=== PATIENT | female | born 1970 | race Caucasian/White ===

== ENCOUNTER → 2019-02-21 08:40 | Outpatient (CLI) | payer OTHER, SELFPAY ==
[2019-02-21 09:36] LABS: Add Manual Diff / Slide Review NO; Basophils Absolute Auto 0 /uL (0-100); Basophils Percent Auto 0.6 % (0-2); Eosinophils Absolute Auto 100 /uL (0-450); Eosinophils Percent Auto 2.3 % (2-4); Hematocrit 37.8 % (36-46); Hemoglobin 12.7 g/dL (12.0-16.0); Lymphocytes Absolute Auto 1200 /uL (1100-4500); Lymphocytes Percent Auto 29.7 % (25-40); Mean Corpuscular HGB Conc 33.5 % (30-36); Mean Corpuscular Hemoglobin 29.9 PG (26-34); Mean Corpuscular Volume 89.1 fL (80-100); Monocytes Absolute Auto 400 /uL (0-900); Monocytes Percent Auto 9.8 % (3-14); Neutrophils Absolute Auto 2400 /uL (1500-7000); Neutrophils Percent Auto 57.6 % (50-75); Platelet Count 263 X10^3/uL (150-400); Red Blood Cell Count 4.25 X10^6/uL (4.0-5.2); Red Cell Distribution Width 13.4 % (11.6-14.8); White Blood Cell Count 4.2 X10^3/uL (4.5-11.0)
[2019-02-21 09:55] LABS: Alanine Aminotransferase 21 IU/L (9-52); Albumin 4.4 g/dL (3.5-5.0); Albumin Globulin Ratio 1.5 (1.0-2.8); Alkaline Phosphatase 56 U/L (38-126); Aspartate Aminotransferase 23 IU/L (14-36); BUN Creatinine Ratio 22.5 (6-22); Bilirubin Total 0.6 mg/dL (0.2-1.3); Blood Urea Nitrogen 18 mg/dL (7-17); Calcium 9.4 mg/dL (8.4-10.2); Carbon Dioxide 29 mmol/L (22-32); Chloride 101 mmol/L (98-107); Cholesterol 205 mg/dL (140-199); Estimated Glomerular Filt Rate > 60.0 mL/min (>60); Glucose 92 mg/dL (70-100); HDL Cholesterol 70 mg/dL (40-60); HEMOLYSIS < 15 (0-50); LDL Cholesterol Calculated 124 mg/dL (<100); Potassium 4.3 mmol/L (3.4-5.1); Sodium 138 mmol/L (137-145); Total Protein 7.4 g/dL (6.3-8.2); Triglycerides 57 mg/dL (35-150)
[2019-02-21 10:24] LABS: TSH w/ Reflex to FT4 1.12 uIU/mL (0.47-4.68)
== END ==
PROVIDERS: Family Provider Family Medicine; PCP Family Medicine; Visit Provider Family Medicine
DX: Z00.00 Encounter for general adult medical examination without abnormal findings (principal); Z13.6 Encounter for screening for cardiovascular disorders
CPT/HCPCS: 36415; 80053; 80061; 84443; 85025

== ENCOUNTER → 2020-04-01 08:49 | Outpatient (CLI) | payer OTHER, SELFPAY ==
[2020-04-01 11:58] LABS: Add Manual Diff / Slide Review NO; Basophils Absolute Auto 100 /uL (0-100); Eosinophils Absolute Auto 0 /uL (0-450); Eosinophils Percent Auto 0.8 % (2-4); Hematocrit 39.3 % (36-46); Hemoglobin 13.1 g/dL (12.0-16.0); Lymphocytes Absolute Auto 1000 /uL (1100-4500); Lymphocytes Percent Auto 21.7 % (25-40); Mean Corpuscular HGB Conc 33.4 % (30-36); Mean Corpuscular Hemoglobin 29.9 PG (26-34); Mean Corpuscular Volume 89.6 fL (80-100); Monocytes Absolute Auto 600 /uL (0-900); Monocytes Percent Auto 12.8 % (3-14); Neutrophils Absolute Auto 3000 /uL (1500-7000); Neutrophils Percent Auto 62.7 % (50-75); Platelet Count 290 X10^3/uL (150-400); Red Blood Cell Count 4.39 X10^6/uL (4.0-5.2); Red Cell Distribution Width 13.2 % (11.6-14.8); White Blood Cell Count 4.8 X10^3/uL (4.5-11.0)
[2020-04-01 12:03] LABS: Alanine Aminotransferase 18 IU/L (<35); Albumin 4.5 g/dL (3.5-5.0); Albumin Globulin Ratio 1.7 (1.0-2.8); Alkaline Phosphatase 68 U/L (38-126); Amylase 52 U/L (30-110); Aspartate Aminotransferase 26 IU/L (14-36); BUN Creatinine Ratio 18.9 (6-22); Bilirubin Total 0.4 mg/dL (0.2-1.3); Blood Urea Nitrogen 14 mg/dL (7-17); Calcium 9.5 mg/dL (8.4-10.2); Carbon Dioxide 27 mmol/L (22-32); Chloride 102 mmol/L (98-107); Estimated Glomerular Filt Rate > 60.0 mL/min (>60); Globulin 2.7 g/dL (1.7-4.1); Glucose 78 mg/dL (70-100); HEMOLYSIS < 15 (0-50); Lipase 160 U/L (23-300); Potassium 4.7 mmol/L (3.4-5.1); Sodium 138 mmol/L (137-145); Total Protein 7.2 g/dL (6.3-8.2)
[2020-04-01 12:34] LABS: TSH w/ Reflex to FT4 0.46 uIU/mL (0.47-4.68)
[2020-04-01 13:24] LABS: Campylobacter Not Detected (Not Detect); Clostridium difficile toxin AB Not Detected (Not Detect); Enteroaggregative E.coli Not Detected (Not Detect); Enteropathogenic E.coli Not Detected (Not Detect); Plesiomonsa shigelloides Not Detected (Not Detect); Salmonella Not Detected (Not Detect); Vibrio Not Detected (Not Detect); Vibrio cholerae Not Detected (Not Detect); Yersinia enterocolitica Not Detected (Not Detect)
[2020-04-01 13:25] LABS: Adenovirus F 40/41 Not Detected (Not Detect); Astrovirus Not Detected (Not Detect); Cyclospora cayetanensis Not Detected (Not Detect); Entamoeba histolytica Not Detected (Not Detect); Enterotoxigenic E.coli It/st Not Detected (Not Detect); Giardia lamblia Not Detected (Not Detect); Norovirus GI/GII Not Detected (Not Detect); Rotavirus A Not Detected (Not Detect); Sapovirus Not Detected (Not Detect); Shiga-like toxin-prod E.coli Not Detected (Not Detect); Shigella/Enteroinvasive E.coli Not Detected (Not Detect)
[2020-04-01 13:27] LABS: Cryptosporidium Detected (Not Detect)
[2020-04-01 13:48] LABS: Free T4, Direct Thyroxine 1.31 ng/dL (0.78-2.19)
[2020-04-02 07:04] LABS: HBsAg Screen Negative (Negative); Hepatitis A Antibody IgM Negative (Negative); Hepatitis B Core Antibody IgM Negative (Negative); Hepatitis C Antibody <0.1 s/co ratio (0.0-0.9)
== END ==
PROVIDERS: Family Provider Family Medicine; PCP Family Medicine; Referring Provider Physician Assistant; Visit Provider Physician Assistant
DX: R19.7 Diarrhea, unspecified (principal)
CPT/HCPCS: 36415; 80053; 80074; 82150; 83690; 84439; 84443; 85025; 87507

== ENCOUNTER → 2020-12-04 10:17 | Outpatient (CLI) | payer OTHER, SELFPAY ==
[2020-12-04 11:40] LABS: Iron 76 ug/dL (37-170)
[2020-12-04 12:43] LABS: Folate > 20.0 ng/mL (2.76-20.0); Vitamin B12 850 pg/mL (239-931)
== END ==
PROVIDERS: Family Provider Family Medicine; PCP Family Medicine; Referring Provider Dentist; Visit Provider Dentist
DX: M26.69 Other specified disorders of temporomandibular joint (principal); K14.6 Glossodynia; K12.1 Other forms of stomatitis
CPT/HCPCS: 36415; 82607; 82746; 83540; 84443

== ENCOUNTER 2021-02-15 07:58 | Emergency (ER) | payer OTHER, SELFPAY ==
[2021-02-15 08:04] VITALS: BP 148/78; PULSE 86; RESP 15; TEMP 36.8; O2SAT 100; BMI 24.9
--- NOTE | 2021-02-15 08:12 | DI.CT.S_ITS ---
PROCEDURE: CT HEAD/BRAIN WO CON INDICATIONS: right facial droop TECHNIQUE: Noncontrast 4.5 mm thick angled axial sections acquired from the foramen magnum to the vertex, with coronal and sagittal reformats. For radiation dose reduction, the following was used: automated exposure control, adjustment of mA and/or kV according to patient size. COMPARISON: None. FINDINGS: Image quality: CSF spaces: Basal cisterns are patent. No extra-axial fluid collections. Ventricles are normal in size and shape. Brain: No midline shift. No intracranial masses or hemorrhage. Navarrete-white matter interface is normal. Skull and face: Calvarium and visualized facial bones are intact, without suspicious lesions. Sinuses: Visualized sinuses and mastoids are clear. IMPRESSION: No acute intracranial finding. Dictated by: Jak Abrams M.D. on 02/15/2021 at 8:38 Approved by: Jak Abrams M.D. on 02/15/2021 at 8:38
--- NOTE | 2021-02-15 08:14 | ED.NEUROSD ---
HPI - Neuro Symptoms/Deficit General Chief Complaint: Neuro Symptoms/Deficit Stated Complaint: face is sagging and cant smile Time Seen by Provider: 02/15/21 08:00 Source: patient Mode of arrival: Ambulatory Limitations: no limitations History of Present Illness HPI Narrative: Patient is a 51-year-old female presents with right-sided facial droop. She was having issues with her right eye yesterday states she is having trouble closing and was bothering her this morning she woke up with right facial droop. She has no numbness tingling or weakness. No prior history of stroke or TIA. She states that she has had tongue numbness ongoing for past 6-8 months started to involve. Onset (ago): day(s) Location: right face Related Data Home Medications Medication Instructions Recorded Confirmed levonorgestrel 20 mcg/24 hours (6 INTRAUTERINE 08/22/11/18/20 yrs) 52 mg intrauterine device cyclobenzaprine 10 mg tablet 10 mg PO BEDTIME PRN 01/27/21 01/27/21 Previous Rx's Medication Instructions Recorded duloxetine 20 mg capsule,delayed 20 mg PO DAILY #90 cap 11/18/20 release zolpidem 10 mg tablet 10 mg PO HSP PRN #15 tab 11/18/20 artifi.tears(hypromellose)(PF) 2 drp EYE-RIGHT Q4HRWA PRN #10 ml 02/15/21 artificial tears ointment 0.25 inch EYE-RIGHT BEDTIME #3.5 g 02/15/21 prednisone 60 mg PO DAILY #21 tab 02/15/21 valacyclovir 1,000 mg PO TID #21 tab 02/15/21 Allergies Allergy/AdvReac Type Severity Reaction Status Date / Time No Known Drug Allergies Allergy Verified 01/27/21 16:33 Review of Systems Review of Systems Narrative: GENERAL: Denies chills, fatigue, malaise, fever, sweats, travel HEENT: Denies sinus pain, ear pain, sore throat, difficulty swallowing, neck pain RESPIRATORY: Denies dyspnea, cough, wheezing, hemoptysis, sputum. CARDIOVASCULAR: Denies chest pain, palpitations, orthopnea, edema GASTROINTESTINAL: Denies nausea, vomiting, abdominal pain, diarrhea, constipation, melena. : Denies dysuria, frequency, incontinence, hematuria, urinary retention, flank pain. MUSCULOSKELETAL: Denies weakness, joint pain, or bony pain SKIN: No rash, no erythema, no pruritus NEUROLOGIC: See HPI PSYCHIATRIC: No concerning psychosocial issues. 12 point review of systems is negative except for those stated above and HPI Patient History Medical History Remove/insert IUD Surgical History History of bladder suspension procedure Status post breast reduction Family History Father Cancer of neck Social History marital status: Smoking Status: Former smoker alcohol intake: current (1-2 A DAY ) substance use type: does not use Smoking Status: Former smoker Exam Initial Vital Signs Initial Vital Signs: Vital Signs Temperature 98.2 F 02/15/21 08:04 Pulse Rate 86 02/15/21 08:04 Respiratory Rate 15 02/15/21 08:04 Blood Pressure 148/78 H 02/15/21 08:04 Pulse Oximetry 100 02/15/21 08:04 GENERAL: Well-appearing, well-nourished and in no acute distress. HEENT: Head atraumatic,EOMI, pupils reactive, Right-sided facial droop inability to wrinkle right forehead or completely close right eye. Of right facial droop noted at mouth as well. CARDIOVASCULAR: Regular rate and rhythm without murmurs, rubs or gallops. RESPIRATORY: Breath sounds equal bilaterally, no wheezes rales or rhonchi. ABDOMEN: Soft, nontender. Normoactive bowel sounds all 4 quadrants. No guarding or rebound. EXTREMITIES: Normal range of motion, no clubbing or edema. Neurovascularly intact NEUROLOGICAL: Alert and oriented x4.Normal gait and speech. Cranial nerves II through XII grossly intact. Good whvdfr-uf-kbbo, good ccyi-of-mbuk, strength equal bilaterally, no dysarthria or aphasia, sensation in tact to soft touch bilaterally, no visual changes, + right facial droop as described SKIN: Warm, dry, no laceration, no petechiae, no rashes or lesions. Scores GCS Waller coma scale eye opening: Spontaneous Yvette coma scale verbal response: Orientated Waller coma scale motor response: Obey commands Yvette coma scale total score: 15 NIH Stroke Scale Level of Conciousness: Alert, keenly responsive Ask month/age: Answers both questions correctly. Open/close eyes, close hand: Performs both tasks correctly Best gaze horizontal: Normal Visual rueda: No visual loss Facial palsy: Complete paralysis, absence of movement in the upper and lower face Left arm drift: No drift for full 10 sec Right arm drift: No drift for full 10 sec Left leg drift: No drift for full 5 sec Right leg drift: No drift for full 5 sec Limb ataxia: Absent Sensory on face/arms/legs: Normal, no sensory loss Best language: No aphasia, normal Dysarthria: Normal Extinction or inattention: No abnormality Total NIH Stroke scale score: 3 Course Orders Ordered: ED Orders 02/15/21 08:10 Complete Blood Count AUTO DIFF Stat Comprehensive Metabolic Panel Stat Test Serum,Qual Stat Troponin & CK Cardiac Panel Stat 02/15/21 08:12 CT head/brain wo con Stat EKG-12 Lead Stat 02/15/21 08:47 CT angio head and neck Stat Vital Signs Vital signs: Vital Signs - 8 hr 02/15/21 08:04 02/15/21 10:01 Temperature 98.2 F Pulse Rate 86 69 Respiratory Rate 15 18 Blood Pressure 148/78 H 113/71 Pulse Oximetry 100 100 MDM - Neuro Symptoms/Deficit Lab Data Attestation: I reviewed the patient's lab results. Result diagrams: 02/15/21 08:10 02/15/21 08:10 Labs: Lab Results 02/15/21 02/15/21 02/15/21 Range/Units 08:10 08:10 08:10 WBC 5.2 (4.5-11.0) X10^3/uL RBC 4.39 (4.0-5.2) X10^6/uL Hgb 13.1 (12.0-16.0) g/dL Hct 39.7 (36-46) % MCV 90.3 (80-100) fL MCH 29.8 (26-34) PG MCHC 33.0 (30-36) % RDW 13.3 (11.6-14.8) % Plt Count 242 (150-400) X10^3/uL Neut % (Auto) 41.9 L (50-75) % Lymph % (Auto) 46.1 H (25-40) % [place] % (Auto) 9.0 (3-14) % Eos % (Auto) 2.0 (2-4) % Baso % (Auto) 1.0 (0-2) % Neut # (Auto) 2200 (0670-0873) /uL Lymph # (Auto) 2400 (3576-1302) /uL Charlotte # (Auto) 500 (0-900) /uL Eos # (Auto) 100 (0-450) /uL Baso # (Auto) 0 (0-100) /uL Sodium 139 (137-145) mmol/L Potassium 3.8 (3.4-5.1) mmol/L Chloride 104 (98-107) mmol/L Carbon Dioxide 27 (22-32) mmol/L BUN 23 H (7-17) mg/dL Creatinine 0.74 (0.52-1.04) mg/dL Estimated GFR > 60.0 (>60) mL/min BUN/Creatinine Ratio 31.1 H (6-22) Glucose 105 H (70-100) mg/dL Calcium 9.2 (8.4-10.2) mg/dL Total Bilirubin 0.4 (0.2-1.3) mg/dL AST 27 (14-36) IU/L ALT 19 (<35) IU/L Alkaline Phosphatase 75 (38-126) U/L Total Creatine Kinase 77 (30-135) U/L CK-MB (CK-2) TNP CK-MB (CK-2) Rel Index TNP Troponin I < 0.012 (0.01-0.034) ng/mL Total Protein 7.4 (6.3-8.2) g/dL Albumin 4.6 (3.5-5.0) g/dL Globulin 2.8 (1.7-4.1) g/dL Albumin/Globulin Ratio 1.6 (1.0-2.8) Serum , Qual Negative (Negative) Imaging Data CT scan - head: Radiologist's Impression: PROCEDURE: CT HEAD/BRAIN WO CON INDICATIONS: right facial droop TECHNIQUE: Noncontrast 4.5 mm thick angled axial sections acquired from the foramen magnum to the vertex, with coronal and sagittal reformats. For radiation dose reduction, the following was used: automated exposure control, adjustment of mA and/or kV according to patient size. COMPARISON: None. FINDINGS: Image quality: CSF spaces: Basal cisterns are patent. No extra-axial fluid collections. Ventricles are normal in size and shape. Brain: No midline shift. No intracranial masses or hemorrhage. Navarrete-white matter interface is normal. Skull and face: Calvarium and visualized facial bones are intact, without suspicious lesions. Sinuses: Visualized sinuses and mastoids are clear. IMPRESSION: No acute intracranial finding. Dictated by: Jak Abrams M.D. on 02/15/2021 at 8:38 CTA - brain/neck: Radiologist's Impression: PROCEDURE: CT ANGIO HEAD AND NECK INDICATIONS: right facial droop TECHNIQUE: Noncontrast images were performed earlier in the day and not repeated. After the administration of intravenous contrast, 1 mm thick sections acquired from the aortic arch through the [place] of [place]. Post-contrast 4.5 mm thick sections then re-acquired from the foramen magnum to the vertex. 3-dimensional bhpcyms-ugfijntkv-dvubjmskng (MIP) and/or volume rendering reformats were acquired of the central intracranial vasculature and neck separately. COMPARISON: [facility], CT, CT HEAD/BRAIN WO CON, 02/15/2021, 8:18. FINDINGS: Image quality: There is streak artifact seen through the level of the shoulders. Motion artifact is seen near the level of the skull base. BRAIN: CSF spaces: Ventricles are normal in size and shape. Basal cisterns are patent. No extra-axial fluid collections. Brain: No midline shift. No intracranial bleeds or masses. Navarrete-white matter interface appears intact. Skull and face: Calvarium and facial bones appear intact, without suspicious lesions. Orbits appear normal. In this patient with a given history of right facial droop, scrutiny is given to the course of the right facial nerve, including within the parotid gland. No masses or other significant abnormality can be seen. Sinuses: Sinuses and mastoids are clear. HEAD CT ANGIOGRAPHY: Anterior circulation: Intracranial internal carotid arteries are normal in size and flow. The flow within the paired anterior cerebral arteries is normal and symmetric. The flow within the middle cerebral arteries is normal and symmetric. The anterior communicating artery is not well seen. No aneurysms are seen. Posterior circulation: Visualized portions of the vertebral arteries demonstrate normal caliber, and join to form a normal appearing basilar artery. Flow within the posterior cerebral arteries is normal and symmetric. No aneurysms are seen. NECK CT ANGIOGRAPHY: Carotid system: The great vessels demonstrate a conventional anatomy as they arise from the aortic arch. The origins of the common carotid arteries appear patent. The common carotid arteries demonstrate normal caliber and courses. The bifurcation regions are both widely patent. The internal carotid arteries demonstrate normal calibers and courses. Posterior circulation: The origins of the vertebral arteries both appear widely patent. The more superior extracranial portions of both vertebral arteries also demonstrate normal courses and calibers. They join to form a normal appearing basilar artery. Soft tissues: Visualized neck soft tissues demonstrate no suspicious abnormalities. Bones: No suspicious bony lesions. Visualized cervical spine appears normally aligned. IMPRESSION: No hemodynamically significant stenosis can be seen within the intracranial circulation or within the arteries of the neck. Any quantitative measurements of stenosis were performed using NASCET criteria. Dictated by: Anoop Saldana M.D. on 02/15/2021 at 8:34 ECG Data Attestation: I personally reviewed and interpreted this ECG as follows: Prior ECG tracings: not available for review Interpretation: Rhythm rate 90 p.r. 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 Head CT and CT angio are negative. She is able to close her eye partially, I discussed with her and the importance of keeping it moist. No other focal deficits. She is given prednisone and valacyclovir, artificial tears. I also discussed with her she may need outpatient MRI however not needed today. Discharge Plan Departure Patient Disposition: Home Clinical Impression: Willard's palsy Instructions: DI for [place] Palsy Activity Restrictions/Additional Instructions: *You have been diagnosed with Willard's palsy *What to do: This should resolve on its own however some people do have per minute deficits. I do recommend that he have an outpatient MRI. *Continue to take medications as directed--> SENT TO [facility] [place] Eye drops 4 times daily and up to how early if needed her facial tears are available over the counter. Use artificial tear ointment at night and carefully taped shut Prednisone 60 mg once a day for 1 week Valacyclovir 1000 and days *Follow up with your primary care provider in 2-3 days *Return to ER if you should have increasing facial droop, painful or dry eye, vision change or any new, worsening or concerning symptoms Prescriptions: New valacyclovir 1 gram tablet 1,000 mg PO TID Qty: 21 RF: 0 prednisone 20 mg tablet 60 mg PO DAILY Qty: 21 RF: 0 artificial tears ointment Ointment 0.25 inch EYE-RIGHT BEDTIME Qty: 3.5 RF: 0 artifi.tears(hypromellose)(PF) 0.3 % drops 2 drp EYE-RIGHT Q4HRWA PRN (Reason: dry eyes) Qty: 10 RF: 0 No Action Mirena 20 mcg/24 hours (5 yrs) 52 mg intrauterine device intrauterine RF: 0 duloxetine [Cymbalta] 20 mg capsule,delayed release(DR/EC) 20 mg PO DAILY Qty: 90 RF: 1 zolpidem [Ambien] 10 mg tablet 10 mg PO HSP PRN (Reason: insomnia) Qty: 15 RF: 0 cyclobenzaprine 10 mg tablet 10 mg PO BEDTIME PRNRF: 0 Referrals: Jak Nicholson MD [Primary Care Provider] -
[2021-02-15 08:21] LABS: Add Manual Diff / Slide Review NO; Basophils Absolute Auto 0 /uL (0-100); Eosinophils Absolute Auto 100 /uL (0-450); Hematocrit 39.7 % (36-46); Hemoglobin 13.1 g/dL (12.0-16.0); Lymphocytes Absolute Auto 2400 /uL (1100-4500); Lymphocytes Percent Auto 46.1 % (25-40); Mean Corpuscular Hemoglobin 29.8 PG (26-34); Mean Corpuscular Volume 90.3 fL (80-100); Monocytes Absolute Auto 500 /uL (0-900); Neutrophils Absolute Auto 2200 /uL (1500-7000); Neutrophils Percent Auto 41.9 % (50-75); Platelet Count 242 X10^3/uL (150-400); Red Blood Cell Count 4.39 X10^6/uL (4.0-5.2); Red Cell Distribution Width 13.3 % (11.6-14.8); White Blood Cell Count 5.2 X10^3/uL (4.5-11.0)
[2021-02-15 08:34] LABS: Alanine Aminotransferase 19 IU/L (<35); Albumin 4.6 g/dL (3.5-5.0); Albumin Globulin Ratio 1.6 (1.0-2.8); Alkaline Phosphatase 75 U/L (38-126); Aspartate Aminotransferase 27 IU/L (14-36); BUN Creatinine Ratio 31.1 (6-22); Bilirubin Total 0.4 mg/dL (0.2-1.3); Blood Urea Nitrogen 23 mg/dL (7-17); Calcium 9.2 mg/dL (8.4-10.2); Carbon Dioxide 27 mmol/L (22-32); Chloride 104 mmol/L (98-107); Creatine Kinase 77 U/L (30-135); Estimated Glomerular Filt Rate > 60.0 mL/min (>60); Globulin 2.8 g/dL (1.7-4.1); Glucose 105 mg/dL (70-100); HEMOLYSIS < 15 (0-50); Potassium 3.8 mmol/L (3.4-5.1); Sodium 139 mmol/L (137-145); Total Protein 7.4 g/dL (6.3-8.2)
[2021-02-15 08:46] LABS: Troponin I < 0.012 ng/mL (0.01-0.034)
--- NOTE | 2021-02-15 08:47 | DI.CT.S_ITS ---
PROCEDURE: CT ANGIO HEAD AND NECK INDICATIONS: right facial droop TECHNIQUE: Noncontrast images were performed earlier in the day and not repeated. After the administration of intravenous contrast, 1 mm thick sections acquired from the aortic arch through the [place]. Post-contrast 4.5 mm thick sections then re-acquired from the foramen magnum to the vertex. 3-dimensional ixxznlc-quabdokvu-cmpgmrutkh (MIP) and/or volume rendering reformats were acquired of the central intracranial vasculature and neck separately. COMPARISON: [facility], CT, CT HEAD/BRAIN WO CON, 02/15/2021, 8:18. FINDINGS: Image quality: There is streak artifact seen through the level of the shoulders. Motion artifact is seen near the level of the skull base. BRAIN: CSF spaces: Ventricles are normal in size and shape. Basal cisterns are patent. No extra-axial fluid collections. Brain: No midline shift. No intracranial bleeds or masses. Navarrete-white matter interface appears intact. Skull and face: Calvarium and facial bones appear intact, without suspicious lesions. Orbits appear normal. In this patient with a given history of right facial droop, scrutiny is given to the course of the right facial nerve, including within the parotid gland. No masses or other significant abnormality can be seen. Sinuses: Sinuses and mastoids are clear. HEAD CT ANGIOGRAPHY: Anterior circulation: Intracranial internal carotid arteries are normal in size and flow. The flow within the paired anterior cerebral arteries is normal and symmetric. The flow within the middle cerebral arteries is normal and symmetric. The anterior communicating artery is not well seen. No aneurysms are seen. Posterior circulation: Visualized portions of the vertebral arteries demonstrate normal caliber, and join to form a normal appearing basilar artery. Flow within the posterior cerebral arteries is normal and symmetric. No aneurysms are seen. NECK CT ANGIOGRAPHY: Carotid system: The great vessels demonstrate a conventional anatomy as they arise from the aortic arch. The origins of the common carotid arteries appear patent. The common carotid arteries demonstrate normal caliber and courses. The bifurcation regions are both widely patent. The internal carotid arteries demonstrate normal calibers and courses. Posterior circulation: The origins of the vertebral arteries both appear widely patent. The more superior extracranial portions of both vertebral arteries also demonstrate normal courses and calibers. They join to form a normal appearing basilar artery. Soft tissues: Visualized neck soft tissues demonstrate no suspicious abnormalities. Bones: No suspicious bony lesions. Visualized cervical spine appears normally aligned. IMPRESSION: No hemodynamically significant stenosis can be seen within the intracranial circulation or within the arteries of the neck. Any quantitative measurements of stenosis were performed using NASCET criteria. Dictated by: Anoop Saldana M.D. on 02/15/2021 at 8:34 Approved by: Anoop Saldana M.D. on 02/15/2021 at 8:38
[2021-02-15 09:14] LABS: Pregnancy Test Serum,Qual Negative (Negative)
[2021-02-15 10:01] VITALS: BP 113/71; PULSE 69; RESP 18; O2SAT 100
== END 2021-02-15 10:02 | disposition home or self-care (01) ==
PROVIDERS: Emergency Provider Emergency Medicine; PCP Family Medicine
DX: G51.0 Bell's palsy (principal)
CPT/HCPCS: 36415; 70450; 70496; 70498; 80053; 82550; 84484; 84703; 85025; 93005; 93010; 99284; Q9967

== ENCOUNTER → 2021-02-18 19:37 | Outpatient (CLI) | payer OTHER, SELFPAY ==
--- NOTE | 2021-02-18 19:39 | DI.MRI.S_ITS ---
PROCEDURE: MR HEAD/BRAIN WO/W CON INDICATIONS: bells palsy, burning tongue syndrome, tongue numbness TECHNIQUE: Noncontrast axial T1 spin echo, axial T2 fast spin echo, sagittal and axial FLAIR, coronal T2 fast spin echo, axial gradient echo, axial diffusion and ADC through the brain. After the administration of contrast, axial and coronal 3D VIBE or T1 spin echo with fat saturation through the brain. COMPARISON: None. FINDINGS: Image quality: Excellent. CSF Spaces: Basal cisterns are patent. No extra-axial fluid collections. Ventricles are normal in size and shape. Brain: No midline shift. No intracranial bleeds or masses. No abnormal intracranial enhancement. The brainstem appears normal. Diffusion-weighted images demonstrate no acute ischemic insults. No chronic ischemic insults. Normal intravascular flow voids are present. Visualized cranial nerves are grossly unremarkable with no evidence of abnormal enhancement. Skull and face: Calvarial marrow is normal in signal. Orbits appear normal. Sinuses: Sinuses and mastoids appear clear. IMPRESSION: 1. No explanation for Willard's palsy. 2. No acute process. No recent infarct. Dictated by: Ayah Collado M.D. on 02/19/2021 at 8:46 Approved by: Ayah Collado M.D. on 02/19/2021 at 8:49
== END ==
PROVIDERS: PCP Family Medicine; Referring Provider Family Medicine; Visit Provider Family Medicine
DX: G51.0 Bell's palsy (principal); K14.6 Glossodynia; M26.629 Arthralgia of temporomandibular joint, unspecified side
CPT/HCPCS: 70553; A9579

== ENCOUNTER 2021-03-02 09:45 | Outpatient (RCR) | payer OTHER, SELFPAY ==
--- NOTE | 2020-12-08 14:31 | PT.OIE ---
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) Cervicalgia (12/08/20) Muscle weakness (generalized) (12/08/20) Abnormal posture (12/08/20) Jaw pain (12/08/20) Past Medical History (Last Updated 10/22/20 @ 07:40 by Jak Nicholson MD) Remove/insert IUD Past Surgical History History of bladder suspension procedure Status post breast reduction Visit Care Team Role Provider Type Jak Nicholson MD Primary Care Provider Physician Specialty: Family Practice Address: [address] [place] [address], [id number] Email: [email or web address] Amador Galeas DDS Attending Provider Non-Staff Referring Provider Specialty: Dentistry Address: [address] [place] [address] [address], [address] Email: Physical Therapy Initial Evaluation PT-OP-A Visit Information Start: 12/08/20 07:31 Freq: Status: Active Protocol: Document 12/08/20 15:21 [facility] (Rec: 12/08/20 16:07 [facility] [id number]) Out-Patient Physical Therapy Visit Information Visit Information Visit Type Initial Evaluation Visit Start Time 15:21 Visit Stop Time 16:02 Total Visit Minutes 41 Visit Number 1 Number of WINDLASSER Visits 0 PT-OP-B Current Condition Start: 12/08/20 07:31 Freq: Status: Active Protocol: Document 12/08/20 15:21 [facility] (Rec: 12/08/20 16:07 [facility] [id number]) Current Condition History of Current Condition Onset Date worse in last 9 months w/ history of 20 or so years Current Complaints L jaw >R History of Current Condition In 20s, Dr. Clement helped her re-align her jaw with splints and has had mult night guards. Before face would ache and hurt, but past 9 months feels like she is eating her mouth guard. She is more vicious in her clenching. Dr. Clement wanted her to be in braces but it was going to cost a lot and be 5 years. It is so sore sometimes it feels like she is has an ear ache L>R and pain goes into L forehead. She has burning on tongue which is being treated w/cymbalta. Pt reports chiro treatment and renay has stated she has been more mobile since starting cymbalta. [place] but face aches . Mm on face feel really tired . Dr Galeas wants her to go back to wearing her mouth guard. Pt stopped d/t feeling like she clenches more and is more sore. She wore it after the appt for a while then lost it and just found it last night. She feels more sore after wearing it and the day after feels more sore. Pt reports she wakes up in the middle of the night then am awake so has to read or take a melatonin to fall back asleep so can take an hour. Sleep difficulty has been worse in the past year. Tingly in mouth on L side of mouth & L sup & lat toungue. 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 Pt reports neck gets sore and tense and last doctor has found tightness in L UT region. Pt sometimes wakes up w/l arm into pinky tingly. Prior Treatments and Tests night splint Treatment Goals Patient/Caregiver Goals be able to dec pain & be able to eat all things (unable to eat jerky) Personal Factors Other Personal Factors That May Effect surgies: breast reduction, Therapy/Recovery bladder mesh lift, re-do vaginal canal, bladder likes to spasm-insurance no longer covers it, can't hold it when bladder spasms PT-OP-C Subjective Start: 12/08/20 07:31 Freq: Status: Active Protocol: Document 12/08/20 15:21 [facility] (Rec: 12/08/20 16:07 [facility] [id number]) Patient Questionnaires Neck Disability Index NDI Score 9/50 Other Questionnaire Name and Score Pt self asssesment of occlusal condition: not easy/ comfortable to close back teeth together but can tap B sides together but ndoes not feel equal, feels teeth touching more at bottom L, and feel front teeth touch w/ heavier contact when tapping back together. It feels uneenve, uncomfortable and strained to tap back teeth together. OP-PT Pain Assessment Location jaw Pain Location Details L>R Scale Used 01/17 average, worst 6-7/10 Description Aching,Dull Description- Other catches in L forehead, clicking frequently Frequency Constant Radiating Location tongue & mouth L side tingling Variations/Patterns up to L forehead & lat head Other Pain Aggravating Factors chewing, by end of day, stress Pain Alleviating Factors Heat,Massage Other Pain Alleviating Factors chiro PT-OP-F Manual Assessment Start: 12/08/20 07:31 Freq: Status: Active Protocol: Document 12/08/20 15:21 [facility] (Rec: 12/08/20 16:07 [facility] [id number]) Manual Assessments Joint Mobility Assessment Joint Mobility Assessment 1st rib L elevated PT-OP-K Range of Motion Start: 12/08/20 07:31 Freq: Status: Active Protocol: Document 12/08/20 15:21 [facility] (Rec: 12/08/20 16:07 [facility] [id number]) Cervical Spine Range of Motion Cervical Spine Active Degrees Testing Position Sitting Flexion 60 Extension 51 Rotation Left 68 Rotation Right 64 Lateral Flexion Left 38 Lateral Flexion Right 42 Comments tightenss w/lat flex TMJ Range of Motion Jaw Openning Jaw Openning (mm) 41 Comments Comments C curve to L w/jaw opening PT-OP-Q Treatments Start: 12/08/20 07:31 Freq: Status: Active Protocol: Document 12/08/20 15:21 [facility] (Rec: 12/09/20 12:10 [facility] [id number]) Therapeutic Exercises Sitting Exercises jaw Sitting Exercise Name 1. working on resting jaw position (tip of tongue at rougi) Comments 2. open/close w/tongue on soft palatte PT-OP-T Assessment and Plan Start: 12/08/20 07:31 Freq: Status: Active Protocol: Document 12/08/20 15:21 [facility] (Rec: 12/08/20 16:07 [facility] [id number]) Physical Therapy Assessment Rehab Potential Rehabilitation Potential Good Evaluation Complexity Number of Personal Factors/Comorbidities 3 or More Number of Body Systems Impaired 4 or More Clinical Presentation at Evaluation Evolving Impairments Impairments Activity Tolerance,Functional Activities,Functional Mobility ,Pain,Posture,ROM,Soft Tissue Mobility,Strength Goals posture Short Term Goal (STG) Pt will have good desk set up and sleep position in order to dec pain. STG Duration 01/09/21 Archives Specialist Goal (LTG) pt will show improvd posture with scoring of at least 4/5 on VCT & EFT and show good upright positioning w/o cuieng . LTG Duration 02/07/21 NDI Impairment 9/50 Archives Specialist Goal (LTG) Pt will improve NDI score to no more than 2/50 to show improved functional ability. LTG Duration 02/07/21 ROM Short Term Goal (STG) Pt will have full cervical ROM without inc pain/tightness. STG Duration 01/08/21 Archives Specialist Goal (LTG) pt will have full jaw openings w/o deviation and without pain to improve ability to eat . LTG Duration 02/07/21 jaw pain Short Term Goal (STG) Pt will report no constant jaw or head pain. STG Duration 01/11/21 Custodial Goal (LTG) Pt will be able to eat all types of food without increased pain. LTG Duration 02/07/21 Assessment Summary Assessment Pt presents with chronic jaw pain with worsening over the past 9 months where it has started to limit her and pt reports much higher pain levels. She has impaired jaw mechanics w/opening w/C curve along w/ant shear of B TMJ w/ opening, which likely affects her pain. She is not able to eat all foods and has pain constantly in the day w/ radiating pain into head. She also has tingling in mouth and on tongue which may be related as it started around the same time as increased pain. She does have some neck tightness and tension which may contribute to her pain and dysfunction as well as her fwd rounded posture & fwd head posture especially when in seated position. She would benefit from PT to work on these deficits and improved function of opening/closing of jaw and cervical and cranial mobility. She reports incontinence issues w/history of surgery and was educated she may benefit from PT for this as it may be connected to jaw issues per recent studies and to talk to her provider about this referral. She was also edcuated to discuss seeing a sleep specialist for a sleep study d/t c/o of waking up every nigth and being unable to fall back asleep. Educated pt on the research also showing links between sleep and jaw pain. Physical Therapy Plan Frequency and Duration Frequency of Treatment 2x/Week Duration of Treatment 2months Plan of Care Start Date 12/08/20 Plan of Care End Date 02/07/21 Therapeutic Interventions Therapeutic Interventions Home Exercise Program,Joint Mobilizations,Manual Therapy, Neuromuscular Re-education, Patient/Caregiver Education, Self-Care/Home Management,Soft Tissue Mobilization,Taping, Therapeutic Activities, Therapeutic Exercises Modalities Cold Pack/Ice Massage,Electric Stimulation,Hot Packs, Traction- Mechanical, Ultrasound Next Visit Focus/Plan Next Note Type Treatment Note Next Visit Plan rocabado 6x6, wall posture, work manually on jaw and cervical region
--- NOTE | 2020-12-08 16:32 | PT.OPPOC ---
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) Cervicalgia (12/08/20) Muscle weakness (generalized) (12/08/20) Abnormal posture (12/08/20) Jaw pain (12/08/20) Visit Care Team Role Provider Type Jak Nicholson MD Primary Care Provider Physician Specialty: Family Practice Address: [address] [place] [address], [id number] Email: [email or web address] Amador Galeas DDS Attending Provider Non-Staff Referring Provider Specialty: Dentistry Address: [address] [place] [address], [address], [address] Email: Plan Of Care PT-OP-T Assessment and Plan Start: 12/08/20 07:31 Freq: Status: Active Protocol: Document 12/08/20 15:21 [facility] (Rec: 12/08/20 16:07 [facility] [id number]) Physical Therapy Assessment Rehab Potential Rehabilitation Potential Good Evaluation Complexity Number of Personal Factors/Comorbidities 3 or More Number of Body Systems Impaired 4 or More Clinical Presentation at Evaluation Evolving Impairments Impairments Activity Tolerance,Functional Activities,Functional Mobility ,Pain,Posture,ROM,Soft Tissue Mobility,Strength Goals posture Short Term Goal (STG) Pt will have good desk set up and sleep position in order to dec pain. STG Duration 01/09/21 Squirrel Man Goal (LTG) pt will show improvd posture with scoring of at least 4/5 on VCT & EFT and show good upright positioning w/o cuieng . LTG Duration 02/07/21 NDI Impairment 9/50 Squirrel Man Goal (LTG) Pt will improve NDI score to no more than 2/50 to show improved functional ability. LTG Duration 02/07/21 ROM Short Term Goal (STG) Pt will have full cervical ROM without inc pain/tightness. STG Duration 01/08/21 Penitentiary Goal (LTG) pt will have full jaw openings w/o deviation and without pain to improve ability to eat . LTG Duration 02/07/21 jaw pain Short Term Goal (STG) Pt will report no constant jaw or head pain. STG Duration 01/11/21 Squirrel Man Goal (LTG) Pt will be able to eat all types of food without increased pain. LTG Duration 02/07/21 Assessment Summary Assessment Pt presents with chronic jaw pain with worsening over the past 9 months where it has started to limit her and pt reports much higher pain levels. She has impaired jaw mechanics w/opening w/C curve along w/ant shear of B TMJ w/ opening, which likely affects her pain. She is not able to eat all foods and has pain constantly in the day w/ radiating pain into head. She also has tingling in mouth and on tongue which may be related as it started around the same time as increased pain. She does have some neck tightness and tension which may contribute to her pain and dysfunction as well as her fwd rounded posture & fwd head posture especially when in seated position. She would benefit from PT to work on these deficits and improved function of opening/closing of jaw and cervical and cranial mobility. She reports incontinence issues w/history of surgery and was educated she may benefit from PT for this as it may be connected to jaw issues per recent studies and to talk to her provider about this referral. She was also edcuated to discuss seeing a sleep specialist for a sleep study d/t c/o of waking up every nigth and being unable to fall back asleep. Educated pt on the research also showing links between sleep and jaw pain. Physical Therapy Plan Frequency and Duration Frequency of Treatment 2x/Week Duration of Treatment 2months Plan of Care Start Date 12/08/20 Plan of Care End Date 02/07/21 Therapeutic Interventions Therapeutic Interventions Home Exercise Program,Joint Mobilizations,Manual Therapy, Neuromuscular Re-education, Patient/Caregiver Education, Self-Care/Home Management,Soft Tissue Mobilization,Taping, Therapeutic Activities, Therapeutic Exercises Modalities Cold Pack/Ice Massage,Electric Stimulation,Hot Packs, Traction- Mechanical, Ultrasound Next Visit Focus/Plan Next Note Type Treatment Note Next Visit Plan rocabado 6x6, wall posture, work manually on jaw and cervical region Plan of Care Dates Plan of Care Start Date 12/08/20 Plan of Care End Date 02/07/21 Electronically Signed by: Mary Baldwin, PT 12/11/20 1033 Please Sign and Return: I have reviewed this Plan of Care and certify that the skilled therapy services above are required to meet the patient?s needs. Physician Signature Date Printed Name and Credentials Clinical Instructor Signature Printed Name and Credentials
--- NOTE | 2020-12-12 14:35 | PT.OTN ---
Current Diagnoses Dentofacial anomaly, unspecified (12/12/20) Cervicalgia (12/12/20) Muscle weakness (generalized) (12/12/20) Abnormal posture (12/12/20) Jaw pain (12/12/20) Physical Therapy Treatment Note PT-OP-A Visit Information Start: 12/08/20 07:31 Freq: Status: Active Protocol: Document 12/12/20 13:51 [facility] (Rec: 12/12/20 16:09 [facility] [id number]) Out-Patient Physical Therapy Visit Information Visit Information Visit Type Treatment Note Visit Start Time 13:51 Visit Stop Time 14:35 Total Visit Minutes 44 Visit Number 2 Number of AIR HAMMER STRIPPER Visits 1 PT-OP-B Current Condition Start: 12/08/20 07:31 Freq: Status: Active Protocol: Document 12/08/20 15:21 [facility] (Rec: 12/08/20 16:07 [facility] [id number]) Current Condition History of Current Condition Onset Date worse in last 9 months w/ history of 20 or so years Current Complaints L jaw >R History of Current Condition In 20s, Dr. Clement helped her re-align her jaw with splints and has had mult night guards. Before face would ache and hurt, but past 9 months feels like she is eating her mouth guard. She is more vicious in her clenching. Dr. Clement wanted her to be in braces but it was going to cost a lot and be 5 years. It is so sore sometimes it feels like she is has an ear ache L>R and pain goes into L forehead. She has burning on tongue which is being treated w/cymbalta. Pt reports chiro treatment and renay has stated she has been more mobile since starting cymbalta. [place] but face aches . Mm on face feel really tired . Dr Galeas wants her to go back to wearing her mouth guard. Pt stopped d/t feeling like she clenches more and is more sore. She wore it after the appt for a while then lost it and just found it last night. She feels more sore after wearing it and the day after feels more sore. Pt reports she wakes up in the middle of the night then am awake so has to read or take a melatonin to fall back asleep so can take an hour. Sleep difficulty has been worse in the past year. Tingly in mouth on L side of mouth & L sup & lat toungue. 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 Pt reports neck gets sore and tense and last doctor has found tightness in L UT region. Pt sometimes wakes up w/l arm into pinky tingly. Prior Treatments and Tests night splint Treatment Goals Patient/Caregiver Goals be able to dec pain & be able to eat all things (unable to eat jerky) Personal Factors Other Personal Factors That May Effect surgies: breast reduction, Therapy/Recovery bladder mesh lift, re-do vaginal canal, bladder likes to spasm-insurance no longer covers it, can't hold it when bladder spasms PT-OP-C Subjective Start: 12/08/20 07:31 Freq: Status: Active Protocol: Document 12/12/20 13:51 [facility] (Rec: 12/12/20 16:09 [facility] [id number]) OP-PT Subjective Patient Comments Patient Comments Pt stated jaw feeling alot better, doing exercises as directed and suprised how effective it is. Patient Reported Progress Improving PT-OP-F Manual Assessment Start: 12/08/20 07:31 Freq: Status: Active Protocol: Document 12/08/20 15:21 [facility] (Rec: 12/08/20 16:07 [facility] [id number]) Manual Assessments Joint Mobility Assessment Joint Mobility Assessment 1st rib L elevated PT-OP-K Range of Motion Start: 12/08/20 07:31 Freq: Status: Active Protocol: Document 12/08/20 15:21 [facility] (Rec: 12/08/20 16:07 [facility] [id number]) Cervical Spine Range of Motion Cervical Spine Active Degrees Testing Position Sitting Flexion 60 Extension 51 Rotation Left 68 Rotation Right 64 Lateral Flexion Left 38 Lateral Flexion Right 42 Comments tightenss w/lat flex TMJ Range of Motion Jaw Openning Jaw Openning (mm) 41 Comments Comments C curve to L w/jaw opening PT-OP-Q Treatments Start: 12/08/20 07:31 Freq: Status: Active Protocol: Document 12/12/20 13:51 [facility] (Rec: 12/12/20 16:09 [facility] [id number]) Therapeutic Exercises Supine Exercises cervical ext (DNF) Supine Exercise Name chin nod Side bilateral Reps/Minutes x 5 sec hold x5 Comments cued slow gentle contraction Sitting Exercises UT and lev scap stretch' Side bilateral Reps/Minutes 30 x3 Comments anchor arm down and can add little over pressure stretch jaw Sitting Exercise Name Rocabado 6x6 (added to HEP) Side bilateral Manual Therapy Treatment Soft Tissue Mobilization SCM, suboccipitals, UT, lev scap, temporalis Body Location B Mobilization Type Cross-Friction,Rolling, Sustained Pressure,Other Intensity/Depth Moderate Body Position Hooklying Comments pincer kneading, scrubbing, pin with isometric muscle activation. masseter, medial pterygoid Body Location B Mobilization Type Rolling,Sustained Pressure, Other Intensity/Depth Moderate Body Position Hooklying Comments rolling, sustained pressure w/ open/close jaw PT-OP-T Assessment and Plan Start: 12/08/20 07:31 Freq: Status: Active Protocol: Document 12/12/20 13:51 [facility] (Rec: 12/12/20 16:09 [facility] [id number]) Physical Therapy Assessment Goals posture Short Term Goal (STG) Pt will have good desk set up and sleep position in order to dec pain. STG Duration 01/09/21 Half-Way Goal (LTG) pt will show improvd posture with scoring of at least 4/5 on VCT & EFT and show good upright positioning w/o cuieng . LTG Duration 02/07/21 NDI Impairment 9/50 Half-Way Goal (LTG) Pt will improve NDI score to no more than 2/50 to show improved functional ability. LTG Duration 02/07/21 ROM Short Term Goal (STG) Pt will have full cervical ROM without inc pain/tightness. STG Duration 01/08/21 Telephone Interviewer Goal (LTG) pt will have full jaw openings w/o deviation and without pain to improve ability to eat . LTG Duration 02/07/21 jaw pain Short Term Goal (STG) Pt will report no constant jaw or head pain. STG Duration 01/11/21 Half-Way Goal (LTG) Pt will be able to eat all types of food without increased pain. LTG Duration 02/07/21 Assessment Summary Assessment Pt responded well to manual and instruction self application, review open/close jaw, initiated CS DNF, Rac[place]ado 6x6 ex, UT and lev scap stretching. Pt stated my jaw is more relaxed. Physical Therapy Plan Frequency and Duration Frequency of Treatment 2x/Week Duration of Treatment 2months Plan of Care Start Date 12/08/20 Plan of Care End Date 02/07/21 Therapeutic Interventions Therapeutic Interventions Home Exercise Program,Joint Mobilizations,Manual Therapy, Neuromuscular Re-education, Patient/Caregiver Education, Self-Care/Home Management,Soft Tissue Mobilization,Taping, Therapeutic Activities, Therapeutic Exercises Modalities Cold Pack/Ice Massage,Electric Stimulation,Hot Packs, Traction- Mechanical, Ultrasound Next Visit Focus/Plan Next Note Type Treatment Note Next Visit Plan Assess response to manual, stretching, rocabado 6x6, neck stretching and DNF last tx. Next tx assess theracane for self post neck/ scap manual MWM, discussed but didn't perform. Continue work manually on jaw and cervical region, wall posture.
--- NOTE | 2020-12-16 17:59 | PT.OTN ---
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) Cervicalgia (12/16/20) Muscle weakness (generalized) (12/16/20) Abnormal posture (12/16/20) Jaw pain (12/16/20) Physical Therapy Treatment Note PT-OP-A Visit Information Start: 12/08/20 07:31 Freq: Status: Active Protocol: Document 12/16/20 17:42 [facility] (Rec: 12/16/20 17:59 [facility] [id number]) Out-Patient Physical Therapy Visit Information Visit Information Visit Type Treatment Note Visit Start Time 16:51 Visit Stop Time 17:47 Total Visit Minutes 56 Visit Number 3 Number of ER MANAGER Visits 0 PT-OP-B Current Condition Start: 12/08/20 07:31 Freq: Status: Active Protocol: Document 12/08/20 15:21 [facility] (Rec: 12/08/20 16:07 [facility] [id number]) Current Condition History of Current Condition Onset Date worse in last 9 months w/ history of 20 or so years Current Complaints L jaw >R History of Current Condition In 20s, Dr. Clement helped her re-align her jaw with splints and has had mult night guards. Before face would ache and hurt, but past 9 months feels like she is eating her mouth guard. She is more vicious in her clenching. Dr. Clement wanted her to be in braces but it was going to cost a lot and be 5 years. It is so sore sometimes it feels like she is has an ear ache L>R and pain goes into L forehead. She has burning on tongue which is being treated w/cymbalta. Pt reports chiro treatment and reddio has stated she has been more mobile since starting cymbalta. [place] but face aches . Mm on face feel really tired . Dr Galeas wants her to go back to wearing her mouth guard. Pt stopped d/t feeling like she clenches more and is more sore. She wore it after the appt for a while then lost it and just found it last night. She feels more sore after wearing it and the day after feels more sore. Pt reports she wakes up in the middle of the night then am awake so has to read or take a melatonin to fall back asleep so can take an hour. Sleep difficulty has been worse in the past year. Tingly in mouth on L side of mouth & L sup & lat toungue. 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 Pt reports neck gets sore and tense and last doctor has found tightness in L UT region. Pt sometimes wakes up w/l arm into pinky tingly. Prior Treatments and Tests night splint Treatment Goals Patient/Caregiver Goals be able to dec pain & be able to eat all things (unable to eat jerky) Personal Factors Other Personal Factors That May Effect surgies: breast reduction, Therapy/Recovery bladder mesh lift, re-do vaginal canal, bladder likes to spasm-insurance no longer covers it, can't hold it when bladder spasms PT-OP-C Subjective Start: 12/08/20 07:31 Freq: Status: Active Protocol: Document 12/16/20 17:42 [facility] (Rec: 12/16/20 17:59 [facility] [id number]) OP-PT Subjective Patient Comments Patient Comments Pt reports she has been working on exercises. Manual treatment felt tender but felt good and helpful. Pt reports being sore from a workout she did earlier this week. NOtes soreness in UT region PT-OP-F Manual Assessment Start: 12/08/20 07:31 Freq: Status: Active Protocol: Document 12/08/20 15:21 [facility] (Rec: 12/08/20 16:07 [facility] [id number]) Manual Assessments Joint Mobility Assessment Joint Mobility Assessment 1st rib L elevated PT-OP-K Range of Motion Start: 12/08/20 07:31 Freq: Status: Active Protocol: Document 12/08/20 15:21 [facility] (Rec: 12/08/20 16:07 [facility] [id number]) Cervical Spine Range of Motion Cervical Spine Active Degrees Testing Position Sitting Flexion 60 Extension 51 Rotation Left 68 Rotation Right 64 Lateral Flexion Left 38 Lateral Flexion Right 42 Comments tightenss w/lat flex TMJ Range of Motion Jaw Openning Jaw Openning (mm) 41 Comments Comments C curve to L w/jaw opening PT-OP-Q Treatments Start: 12/08/20 07:31 Freq: Status: Active Protocol: Document 12/16/20 17:42 [facility] (Rec: 12/16/20 17:59 [facility] [id number]) Therapeutic Exercises Sitting Exercises jaw Sitting Exercise Name Rocabado 6x6 (reviewed HEP) Side bilateral Comments significant time spent on retraction of cervical & scaps -about 15 reps ea Standing Exercises wall posture Standing Exercise Name w/scap retraction then w/90/90 ER Side bilateral Reps/Minutes 10 ea Manual Therapy Treatment Soft Tissue Mobilization SCM, suboccipitals, UT, lev scap, temporalis Body Location B temporalis, masseter, digastric Mobilization Type Cross-Friction,Rolling, Sustained Pressure,Other Intensity/Depth Moderate Body Position Hooklying masseter, medial pterygoid Body Location B Mobilization Type Rolling,Sustained Pressure, Other Intensity/Depth Moderate Body Position Hooklying Comments intraoral w/open/close of jaw Self-Care/Home Management Treatment Education Other Education discussed resting position of tongue on rugae( on hard palette behind front teeth), edu on importance of posture, discussed how over use of UT w /exercises is likely a cause for inc pain PT-OP-R Modalities Start: 12/08/20 07:31 Freq: Status: Active Protocol: Document 12/16/20 17:42 [facility] (Rec: 12/16/20 17:59 [place] [id number]) Hot Pack/Cold Pack Treatment Hot Pack Location cervical to jaw Patient Position Supine Treatment Duration (minutes) 15 PT-OP-T Assessment and Plan Start: 12/08/20 07:31 Freq: Status: Active Protocol: Document 12/16/20 17:42 [facility] (Rec: 12/16/20 17:59 [place] [id number]) Physical Therapy Assessment Goals posture Short Term Goal (STG) Pt will have good desk set up and sleep position in order to dec pain. STG Duration 01/09/21 Nursing Home Goal (LTG) pt will show improvd posture with scoring of at least 4/5 on VCT & EFT and show good upright positioning w/o cuieng . LTG Duration 02/07/21 NDI Impairment 9/50 Classification And Treatment Director Goal (LTG) Pt will improve NDI score to no more than 2/50 to show improved functional ability. LTG Duration 02/07/21 ROM Short Term Goal (STG) Pt will have full cervical ROM without inc pain/tightness. STG Duration 01/08/21 Nursing Home Goal (LTG) pt will have full jaw openings w/o deviation and without pain to improve ability to eat . LTG Duration 02/07/21 jaw pain Short Term Goal (STG) Pt will report no constant jaw or head pain. STG Duration 01/11/21 Classification And Treatment Director Goal (LTG) Pt will be able to eat all types of food without increased pain. LTG Duration 02/07/21 Assessment Summary Assessment Pt has difficulty w/scap retraction w/o elevation and requries cueing for depression of scap during retraction. She did better on wall d/t pt extending lumbar spine during attempts to do scap retraction . She had imrpoved opening w/ less protrusion on R after manual but did note head feeling sore after treatment & signfiicant tendernesss w/ ptyergoid STM. Physical Therapy Plan Frequency and Duration Frequency of Treatment 2x/Week Duration of Treatment 2months Plan of Care Start Date 12/08/20 Plan of Care End Date 02/07/21 Next Visit Focus/Plan Next Note Type Treatment Note Next Visit Plan review cervical retraction & scap retract/depression, progress postural strengthening as tolerated focusing on avoiding UT activation
--- NOTE | 2020-12-18 15:15 | PT.OTN ---
Current Diagnoses Dentofacial anomaly, unspecified (12/18/20) Cervicalgia (12/18/20) Muscle weakness (generalized) (12/18/20) Abnormal posture (12/18/20) Jaw pain (12/18/20) Physical Therapy Treatment Note PT-OP-A Visit Information Start: 12/08/20 07:31 Freq: Status: Active Protocol: Document 12/18/20 14:35 [facility] (Rec: 12/18/20 15:49 [facility] [id number]) Out-Patient Physical Therapy Visit Information Visit Information Visit Type Treatment Note Visit Start Time 14:35 Visit Stop Time 15:15 Total Visit Minutes 40 Visit Number 4 Number of COLD ROLL OPERATOR Visits 1 PT-OP-B Current Condition Start: 12/08/20 07:31 Freq: Status: Active Protocol: Document 12/08/20 15:21 [facility] (Rec: 12/08/20 16:07 [facility] [id number]) Current Condition History of Current Condition Onset Date worse in last 9 months w/ history of 20 or so years Current Complaints L jaw >R History of Current Condition In 20s, Dr. Clement helped her re-align her jaw with splints and has had mult night guards. Before face would ache and hurt, but past 9 months feels like she is eating her mouth guard. She is more vicious in her clenching. Dr. Clement wanted her to be in braces but it was going to cost a lot and be 5 years. It is so sore sometimes it feels like she is has an ear ache L>R and pain goes into L forehead. She has burning on tongue which is being treated w/cymbalta. Pt reports chiro treatment and renay has stated she has been more mobile since starting cymbalta. [place] but face aches . Mm on face feel really tired . Dr Galeas wants her to go back to wearing her mouth guard. Pt stopped d/t feeling like she clenches more and is more sore. She wore it after the appt for a while then lost it and just found it last night. She feels more sore after wearing it and the day after feels more sore. Pt reports she wakes up in the middle of the night then am awake so has to read or take a melatonin to fall back asleep so can take an hour. Sleep difficulty has been worse in the past year. Tingly in mouth on L side of mouth & L sup & lat toungue. 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 Pt reports neck gets sore and tense and last doctor has found tightness in L UT region. Pt sometimes wakes up w/l arm into pinky tingly. Prior Treatments and Tests night splint Treatment Goals Patient/Caregiver Goals be able to dec pain & be able to eat all things (unable to eat jerky) Personal Factors Other Personal Factors That May Effect surgies: breast reduction, Therapy/Recovery bladder mesh lift, re-do vaginal canal, bladder likes to spasm-insurance no longer covers it, can't hold it when bladder spasms PT-OP-C Subjective Start: 12/08/20 07:31 Freq: Status: Active Protocol: Document 12/18/20 14:35 [facility] (Rec: 12/18/20 15:49 [facility] [id number]) OP-PT Subjective Patient Comments Patient Comments Pt was sore after last tx, was intense but feel was helpful. Follow up with physician and gained 1 cm range but still sees retro mandible movement, signs of clenching. Patient Reported Progress Improving PT-OP-F Manual Assessment Start: 12/08/20 07:31 Freq: Status: Active Protocol: Document 12/08/20 15:21 [facility] (Rec: 12/08/20 16:07 [facility] [id number]) Manual Assessments Joint Mobility Assessment Joint Mobility Assessment 1st rib L elevated PT-OP-K Range of Motion Start: 12/08/20 07:31 Freq: Status: Active Protocol: Document 12/08/20 15:21 [facility] (Rec: 12/08/20 16:07 [facility] [id number]) Cervical Spine Range of Motion Cervical Spine Active Degrees Testing Position Sitting Flexion 60 Extension 51 Rotation Left 68 Rotation Right 64 Lateral Flexion Left 38 Lateral Flexion Right 42 Comments tightenss w/lat flex TMJ Range of Motion Jaw Openning Jaw Openning (mm) 41 Comments Comments C curve to L w/jaw opening PT-OP-Q Treatments Start: 12/08/20 07:31 Freq: Status: Active Protocol: Document 12/18/20 14:35 [facility] (Rec: 12/18/20 15:49 [facility] [id number]) Therapeutic Exercises Supine Exercises cervical ext (DNF) Supine Exercise Name CS ext w/chin nod (standing at wall and shld ext TB) Side bilateral Comments cued head elevation/ext/ chin nod neutral w/ slow gentle contraction Sitting Exercises UT and lev scap stretch' Side bilateral Reps/Minutes 30 x3 Comments anchor arm down and can add little over pressure stretch jaw Sitting Exercise Name Rocabado 6x6 (reviewed HEP) Side bilateral Comments significant time spent on retraction of cervical & scaps -about 15 reps ea Standing Exercises resisted shld ext Standing Exercise Name arms straight toward side con/ eccentric Side bilateral Reps/Minutes x5 Comments cued tall posture, head elevation, scap stab during conc/ eccentric direct wall posture Standing Exercise Name w/scap retraction then w/90/90 ER Side bilateral Reps/Minutes 10 ea Manual Therapy Treatment Soft Tissue Mobilization SCM, suboccipitals, UT, lev scap, temporalis Body Location B temporalis, SCM, suboccipitals, temoralis Mobilization Type Cross-Friction,Rolling, Sustained Pressure,Other Intensity/Depth Moderate Body Position Hooklying Comments manual and instruction self using scrubbing, pincer gripping/ knead, theracane sustained pressure with head nod/ turn, racquetball on wall masseter, medial pterygoid Body Location B Mobilization Type Rolling,Sustained Pressure, Other Intensity/Depth Moderate Body Position Hooklying Comments intraoral w/open/close of jaw Self-Care/Home Management Treatment Education Patient Education Home Exercise Program,Pain Management,Posture Other Education Instruction on self application of manual STMs and MWM to decreased jaw, neck and scapular complex tightness to allow increased ROM/ mobility. PT-OP-R Modalities Start: 12/08/20 07:31 Freq: Status: Active Protocol: Document 12/16/20 17:42 [facility] (Rec: 12/16/20 17:59 [facility] [id number]) Hot Pack/Cold Pack Treatment Hot Pack Location cervical to jaw Patient Position Supine Treatment Duration (minutes) 15 PT-OP-T Assessment and Plan Start: 12/08/20 07:31 Freq: Status: Active Protocol: Document 12/18/20 14:35 [facility] (Rec: 12/18/20 15:49 [facility] [id number]) Physical Therapy Assessment Goals posture Short Term Goal (STG) Pt will have good desk set up and sleep position in order to dec pain. STG Duration 01/09/21 Detention Goal (LTG) pt will show improvd posture with scoring of at least 4/5 on VCT & EFT and show good upright positioning w/o cuieng . LTG Duration 02/07/21 NDI Impairment 9/50 [employer] Goal (LTG) Pt will improve NDI score to no more than 2/50 to show improved functional ability. LTG Duration 02/07/21 ROM Short Term Goal (STG) Pt will have full cervical ROM without inc pain/tightness. STG Duration 01/08/21 [employer] Goal (LTG) pt will have full jaw openings w/o deviation and without pain to improve ability to eat . LTG Duration 02/07/21 jaw pain Short Term Goal (STG) Pt will report no constant jaw or head pain. STG Duration 01/11/21 [employer] Goal (LTG) Pt will be able to eat all types of food without increased pain. LTG Duration 02/07/21 Assessment Summary Assessment Pt had difficulty initially w /scap retraction w/o elevation , required cuing for CS ext neutral, depression of scap/TA facilitation to decrease LS extension during retraction with improvement, good carryover with shld ext/ lat pull down using TB (will assess next tx before give as home exercise) and almost no UT recruitment. Unable to complete row without compensations so will reassess at later date. Physical Therapy Plan Frequency and Duration Frequency of Treatment 2x/Week Duration of Treatment 2months Plan of Care Start Date 12/08/20 Plan of Care End Date 02/07/21 Therapeutic Interventions Therapeutic Interventions Home Exercise Program,Joint Mobilizations,Manual Therapy, Neuromuscular Re-education, Patient/Caregiver Education, Self-Care/Home Management,Soft Tissue Mobilization,Taping, Therapeutic Activities, Therapeutic Exercises Modalities Cold Pack/Ice Massage,Electric Stimulation,Hot Packs, Traction- Mechanical, Ultrasound Next Visit Focus/Plan Next Note Type Treatment Note Next Visit Plan Continue cervical retraction & scap retract/depression, progress postural strengthening as tolerated focusing on avoiding UT activation
--- NOTE | 2020-12-22 15:55 | PT.OTN ---
Current Diagnoses Dentofacial anomaly, unspecified (12/22/20) Cervicalgia (12/22/20) Muscle weakness (generalized) (12/22/20) Abnormal posture (12/22/20) Jaw pain (12/22/20) Physical Therapy Treatment Note PT-OP-A Visit Information Start: 12/08/20 07:31 Freq: Status: Active Protocol: Document 12/22/20 15:40 [facility] (Rec: 12/22/20 15:55 [facility] [id number]) Out-Patient Physical Therapy Visit Information Visit Information Visit Type Treatment Note Visit Start Time 08:17 Visit Stop Time 09:00 Total Visit Minutes 43 Visit Number 5 Number of TUNNEL ELASTIC OPERATOR ZIGZAG Visits 0 PT-OP-B Current Condition Start: 12/08/20 07:31 Freq: Status: Active Protocol: Document 12/08/20 15:21 [facility] (Rec: 12/08/20 16:07 [facility] [id number]) Current Condition History of Current Condition Onset Date worse in last 9 months w/ history of 20 or so years Current Complaints L jaw >R History of Current Condition In 20s, Dr. Clement helped her re-align her jaw with splints and has had mult night guards. Before face would ache and hurt, but past 9 months feels like she is eating her mouth guard. She is more vicious in her clenching. Dr. Clement wanted her to be in braces but it was going to cost a lot and be 5 years. It is so sore sometimes it feels like she is has an ear ache L>R and pain goes into L forehead. She has burning on tongue which is being treated w/cymbalta. Pt reports chiro treatment and reddio has stated she has been more mobile since starting cymbalta. [place] but face aches . Mm on face feel really tired . Dr Galeas wants her to go back to wearing her mouth guard. Pt stopped d/t feeling like she clenches more and is more sore. She wore it after the appt for a while then lost it and just found it last night. She feels more sore after wearing it and the day after feels more sore. Pt reports she wakes up in the middle of the night then am awake so has to read or take a melatonin to fall back asleep so can take an hour. Sleep difficulty has been worse in the past year. Tingly in mouth on L side of mouth & L sup & lat toungue. 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 Pt reports neck gets sore and tense and last doctor has found tightness in L UT region. Pt sometimes wakes up w/l arm into pinky tingly. Prior Treatments and Tests night splint Treatment Goals Patient/Caregiver Goals be able to dec pain & be able to eat all things (unable to eat jerky) Personal Factors Other Personal Factors That May Effect surgies: breast reduction, Therapy/Recovery bladder mesh lift, re-do vaginal canal, bladder likes to spasm-insurance no longer covers it, can't hold it when bladder spasms PT-OP-C Subjective Start: 12/08/20 07:31 Freq: Status: Active Protocol: Document 12/22/20 15:40 [facility] (Rec: 12/22/20 15:55 [facility] [id number]) OP-PT Subjective Patient Comments Patient Comments Pt reports Dr. Galeas wants her to get a new mouth guard that has more cushion to see if that will be more comfortable in her mouth. She has not followed up yet re: referral to sleep center. She notes greater opening but still pain. PT-OP-F Manual Assessment Start: 12/08/20 07:31 Freq: Status: Active Protocol: Document 12/08/20 15:21 [facility] (Rec: 12/08/20 16:07 [facility] [id number]) Manual Assessments Joint Mobility Assessment Joint Mobility Assessment 1st rib L elevated PT-OP-K Range of Motion Start: 12/08/20 07:31 Freq: Status: Active Protocol: Document 12/08/20 15:21 [facility] (Rec: 12/08/20 16:07 [facility] [id number]) Cervical Spine Range of Motion Cervical Spine Active Degrees Testing Position Sitting Flexion 60 Extension 51 Rotation Left 68 Rotation Right 64 Lateral Flexion Left 38 Lateral Flexion Right 42 Comments tightenss w/lat flex TMJ Range of Motion Jaw Openning Jaw Openning (mm) 41 Comments Comments C curve to L w/jaw opening PT-OP-Q Treatments Start: 12/08/20 07:31 Freq: Status: Active Protocol: Document 12/22/20 15:40 [facility] (Rec: 12/22/20 15:55 [facility] [id number]) Therapeutic Exercises Sitting Exercises retraction Sitting Exercise Name cervical Comments 10 Standing Exercises retraction Standing Exercise Name scap retraction focusing on no lumbar ext & neutral cspine Reps/Minutes 12 Comments max cueing resisted shld ext Standing Exercise Name arms straight toward side Side bilateral Equipment Used L1 Reps/Minutes 10 Comments max cueing wall posture Standing Exercise Name w/scap retraction then w/90/90 ER Side bilateral Reps/Minutes 10 ea Therapeutic Activity Therapeutic Activity posture Name in mirror working on upright positioning w/cspine Manual Therapy Treatment Soft Tissue Mobilization SCM, suboccipitals, UT, lev scap, temporalis Body Location B temporalis, SCM, suboccipitals, temoralis Mobilization Type Cross-Friction,Myofascial Release,Rolling,Sustained Pressure Intensity/Depth Moderate Body Position Hooklying Joint Mobilizations jaw Joint retrusion c/r PT-OP-R Modalities Start: 12/08/20 07:31 Freq: Status: Active Protocol: Document 12/16/20 17:42 [facility] (Rec: 12/16/20 17:59 [facility] [id number]) Hot Pack/Cold Pack Treatment Hot Pack Location cervical to jaw Patient Position Supine Treatment Duration (minutes) 15 PT-OP-T Assessment and Plan Start: 12/08/20 07:31 Freq: Status: Active Protocol: Document 12/22/20 15:40 [facility] (Rec: 12/22/20 15:55 [facility] [id number]) Physical Therapy Assessment Goals posture Short Term Goal (STG) Pt will have good desk set up and sleep position in order to dec pain. STG Duration 01/09/21 [facility] Goal (LTG) pt will show improvd posture with scoring of at least 4/5 on VCT & EFT and show good upright positioning w/o cuieng . LTG Duration 02/07/21 NDI Impairment 9/50 [facility] Goal (LTG) Pt will improve NDI score to no more than 2/50 to show improved functional ability. LTG Duration 02/07/21 ROM Short Term Goal (STG) Pt will have full cervical ROM without inc pain/tightness. STG Duration 01/08/21 [facility] Goal (LTG) pt will have full jaw openings w/o deviation and without pain to improve ability to eat . LTG Duration 02/07/21 jaw pain Short Term Goal (STG) Pt will report no constant jaw or head pain. STG Duration 01/11/21 [facility] Goal (LTG) Pt will be able to eat all types of food without increased pain. LTG Duration 02/07/21 Assessment Summary Assessment Pt has difficulty still w/scap retraciton when in standing. She is doing well in seated though and improved w/cervical retraction but still requries cueing to keep eyes at same level. She had signfiicant difficulty with resisted ext w /o lumbar ext vs scap retraction. Physical Therapy Plan Frequency and Duration Frequency of Treatment 2x/Week Duration of Treatment 2months Plan of Care Start Date 12/08/20 Plan of Care End Date 02/07/21 Next Visit Focus/Plan Next Note Type Treatment Note Next Visit Plan Continue cervical retraction & scap retract/depression, progress postural strengthening as tolerated focusing on avoiding UT activation
--- NOTE | 2020-12-26 08:15 | PT.OTN ---
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) Cervicalgia (12/26/20) Muscle weakness (generalized) (12/26/20) Abnormal posture (12/26/20) Jaw pain (12/26/20) Physical Therapy Treatment Note PT-OP-A Visit Information Start: 12/08/20 07:31 Freq: Status: Active Protocol: Document 12/26/20 07:33 SP (Rec: 12/26/20 11:49 SP [id number]) Out-Patient Physical Therapy Visit Information Visit Information Visit Type Treatment Note Visit Start Time 07:33 Visit Stop Time 08:15 Total Visit Minutes 42 Visit Number 6 Number of BAND DIRECTOR Visits 1 PT-OP-B Current Condition Start: 12/08/20 07:31 Freq: Status: Active Protocol: Document 12/08/20 15:21 [facility] (Rec: 12/08/20 16:07 [facility] [id number]) Current Condition History of Current Condition Onset Date worse in last 9 months w/ history of 20 or so years Current Complaints L jaw >R History of Current Condition In 20s, Dr. Clement helped her re-align her jaw with splints and has had mult night guards. Before face would ache and hurt, but past 9 months feels like she is eating her mouth guard. She is more vicious in her clenching. Dr. Clement wanted her to be in braces but it was going to cost a lot and be 5 years. It is so sore sometimes it feels like she is has an ear ache L>R and pain goes into L forehead. She has burning on tongue which is being treated w/cymbalta. Pt reports chiro treatment and renay has stated she has been more mobile since starting cymbalta. [place] but face aches . Mm on face feel really tired . Dr Galeas wants her to go back to wearing her mouth guard. Pt stopped d/t feeling like she clenches more and is more sore. She wore it after the appt for a while then lost it and just found it last night. She feels more sore after wearing it and the day after feels more sore. Pt reports she wakes up in the middle of the night then am awake so has to read or take a melatonin to fall back asleep so can take an hour. Sleep difficulty has been worse in the past year. Tingly in mouth on L side of mouth & L sup & lat toungue. 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 Pt reports neck gets sore and tense and last doctor has found tightness in L UT region. Pt sometimes wakes up w/l arm into pinky tingly. Prior Treatments and Tests night splint Treatment Goals Patient/Caregiver Goals be able to dec pain & be able to eat all things (unable to eat jerky) Personal Factors Other Personal Factors That May Effect surgies: breast reduction, Therapy/Recovery bladder mesh lift, re-do vaginal canal, bladder likes to spasm-insurance no longer covers it, can't hold it when bladder spasms PT-OP-C Subjective Start: 12/08/20 07:31 Freq: Status: Active Protocol: Document 12/26/20 07:33 SP (Rec: 12/26/20 11:49 SP [id number]) OP-PT Subjective Patient Comments Patient Comments Pt stated her jaw is more sore end of the day and her manual is helping. She is trying to be more conscious of posture and jaw positioning and if is a factor. Pt requested therapist manual. PT-OP-F Manual Assessment Start: 12/08/20 07:31 Freq: Status: Active Protocol: Document 12/08/20 15:21 [facility] (Rec: 12/08/20 16:07 [facility] [id number]) Manual Assessments Joint Mobility Assessment Joint Mobility Assessment 1st rib L elevated PT-OP-K Range of Motion Start: 12/08/20 07:31 Freq: Status: Active Protocol: Document 12/08/20 15:21 [facility] (Rec: 12/08/20 16:07 [facility] [id number]) Cervical Spine Range of Motion Cervical Spine Active Degrees Testing Position Sitting Flexion 60 Extension 51 Rotation Left 68 Rotation Right 64 Lateral Flexion Left 38 Lateral Flexion Right 42 Comments tightenss w/lat flex TMJ Range of Motion Jaw Openning Jaw Openning (mm) 41 Comments Comments C curve to L w/jaw opening PT-OP-Q Treatments Start: 12/08/20 07:31 Freq: Status: Active Protocol: Document 12/26/20 07:33 SP (Rec: 12/26/20 11:49 SP [id number]) Therapeutic Exercises Supine Exercises TS ext over towel Reps/Minutes 20 sec x3 levels Comments cued PPT awarness- felt better leg extended pec stretch Equipment Used over towel roll and noodle Reps/Minutes 30 sec x3 Comments knees bent cervical ext (DNF) Supine Exercise Name CS ext w/chin nod (during corner pec stretch) Side bilateral Reps/Minutes 5 sec hold x5 Comments cued head elevation/ext/ chin nod neutral w/ slow gentle contraction Prone Exercises scap retraction, arm lift retro, cs ext Prone Exercise Name good alignment muscle facilitation Resistance AROM assessment Reps/Minutes 5 sec hold x5 each Comments cued chin nod, PPT awareness Sitting Exercises retraction Sitting Exercise Name cervical, awareness of tall posture Comments 10 Standing Exercises pec stretch Standing Exercise Name added to HEP Side bilateral Equipment Used at corner Reps/Minutes 30 sec 3x3- different arm ranges Comments cued CS ext neutral w/ chin nod retraction Standing Exercise Name scap retraction focusing on no lumbar ext & neutral cspine Reps/Minutes 12 Comments mod cuing Manual Therapy Treatment Soft Tissue Mobilization SCM, suboccipitals, UT, lev scap, temporalis Body Location B temporalis, SCM, suboccipitals, temoralis Mobilization Type Cross-Friction,Myofascial Release,Rolling,Sustained Pressure Intensity/Depth Moderate Body Position Hooklying masseter, medial pterygoid Body Location B Mobilization Type Rolling,Sustained Pressure, Other Intensity/Depth Moderate Body Position Hooklying Comments intraoral w/open/close of jaw PT-OP-R Modalities Start: 12/08/20 07:31 Freq: Status: Active Protocol: Document 12/16/20 17:42 LR (Rec: 12/16/20 17:59 LR [id number]) Hot Pack/Cold Pack Treatment Hot Pack Location cervical to jaw Patient Position Supine Treatment Duration (minutes) 15 PT-OP-T Assessment and Plan Start: 12/08/20 07:31 Freq: Status: Active Protocol: Document 12/26/20 07:33 SP (Rec: 12/26/20 11:49 SP [id number]) Physical Therapy Assessment Goals posture Short Term Goal (STG) Pt will have good desk set up and sleep position in order to dec pain. STG Duration 01/09/21 Transformer Shop Supervisor Goal (LTG) pt will show improvd posture with scoring of at least 4/5 on VCT & EFT and show good upright positioning w/o cuieng . LTG Duration 02/07/21 NDI Impairment 9/50 Alf Goal (LTG) Pt will improve NDI score to no more than 2/50 to show improved functional ability. LTG Duration 02/07/21 ROM Short Term Goal (STG) Pt will have full cervical ROM without inc pain/tightness. STG Duration 01/08/21 Alf Goal (LTG) pt will have full jaw openings w/o deviation and without pain to improve ability to eat . LTG Duration 02/07/21 jaw pain Short Term Goal (STG) Pt will report no constant jaw or head pain. STG Duration 01/11/21 Alf Goal (LTG) Pt will be able to eat all types of food without increased pain. LTG Duration 02/07/21 Assessment Summary Assessment Pt improved with carryover CS retro to neutral and scap stabilization sitting and while doing pec stretch posture positioning post prone lift assessment. Pec stretch initially more tension over bicep and anterior shld but improved post supine over noodle then return to wall, cued to add to HEP. Pt reported feel more open and jaw looser. Physical Therapy Plan Frequency and Duration Frequency of Treatment 2x/Week Duration of Treatment 2months Plan of Care Start Date 12/08/20 Plan of Care End Date 02/07/21 Therapeutic Interventions Therapeutic Interventions Home Exercise Program,Joint Mobilizations,Manual Therapy, Neuromuscular Re-education, Patient/Caregiver Education, Self-Care/Home Management,Soft Tissue Mobilization,Taping, Therapeutic Activities, Therapeutic Exercises Modalities Cold Pack/Ice Massage,Electric Stimulation,Hot Packs, Traction- Mechanical, Ultrasound Next Visit Focus/Plan Next Note Type Treatment Note Next Visit Plan Assess response to pec stretch over noodle and facing corner , TS ext over towel roll and review scap stabilization with correct posture. Continue cervical retraction & scap retract/depression, progress postural strengthening as tolerated focusing on avoiding UT activation
--- NOTE | 2020-12-29 08:20 | PT.OTN ---
Current Diagnoses Dentofacial anomaly, unspecified (12/29/20) Cervicalgia (12/29/20) Muscle weakness (generalized) (12/29/20) Abnormal posture (12/29/20) Jaw pain (12/29/20) Physical Therapy Treatment Note PT-OP-A Visit Information Start: 12/08/20 07:31 Freq: Status: Active Protocol: Document 12/29/20 07:32 SP (Rec: 12/29/20 11:45 SP [id number]) Out-Patient Physical Therapy Visit Information Visit Information Visit Type Treatment Note Visit Start Time 07:32 Visit Stop Time 08:20 Total Visit Minutes 48 Visit Number 7 Number of ROTARY DRILL OPERATOR HELPER Visits 1 PT-OP-B Current Condition Start: 12/08/20 07:31 Freq: Status: Active Protocol: Document 12/08/20 15:21 [facility] (Rec: 12/08/20 16:07 [facility] [id number]) Current Condition History of Current Condition Onset Date worse in last 9 months w/ history of 20 or so years Current Complaints L jaw >R History of Current Condition In 20s, Dr. Clement helped her re-align her jaw with splints and has had mult night guards. Before face would ache and hurt, but past 9 months feels like she is eating her mouth guard. She is more vicious in her clenching. Dr. Clement wanted her to be in braces but it was going to cost a lot and be 5 years. It is so sore sometimes it feels like she is has an ear ache L>R and pain goes into L forehead. She has burning on tongue which is being treated w/cymbalta. Pt reports chiro treatment and renay has stated she has been more mobile since starting cymbalta. [place] but face aches . Mm on face feel really tired . Dr Galeas wants her to go back to wearing her mouth guard. Pt stopped d/t feeling like she clenches more and is more sore. She wore it after the appt for a while then lost it and just found it last night. She feels more sore after wearing it and the day after feels more sore. Pt reports she wakes up in the middle of the night then am awake so has to read or take a melatonin to fall back asleep so can take an hour. Sleep difficulty has been worse in the past year. Tingly in mouth on L side of mouth & L sup & lat toungue. 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 Pt reports neck gets sore and tense and last doctor has found tightness in L UT region. Pt sometimes wakes up w/l arm into pinky tingly. Prior Treatments and Tests night splint Treatment Goals Patient/Caregiver Goals be able to dec pain & be able to eat all things (unable to eat jerky) Personal Factors Other Personal Factors That May Effect surgies: breast reduction, Therapy/Recovery bladder mesh lift, re-do vaginal canal, bladder likes to spasm-insurance no longer covers it, can't hold it when bladder spasms PT-OP-C Subjective Start: 12/08/20 07:31 Freq: Status: Active Protocol: Document 12/29/20 07:32 SP (Rec: 12/29/20 11:45 SP [id number]) OP-PT Subjective Patient Comments Patient Comments Pt stated thinks was hunching last night, didn't sleep well/ restless. Pt stated compliant with HEP, wants to revisit the corner stretch and over towel. PT-OP-F Manual Assessment Start: 12/08/20 07:31 Freq: Status: Active Protocol: Document 12/08/20 15:21 [facility] (Rec: 12/08/20 16:07 [facility] [id number]) Manual Assessments Joint Mobility Assessment Joint Mobility Assessment 1st rib L elevated PT-OP-K Range of Motion Start: 12/08/20 07:31 Freq: Status: Active Protocol: Document 12/08/20 15:21 [facility] (Rec: 12/08/20 16:07 [facility] [id number]) Cervical Spine Range of Motion Cervical Spine Active Degrees Testing Position Sitting Flexion 60 Extension 51 Rotation Left 68 Rotation Right 64 Lateral Flexion Left 38 Lateral Flexion Right 42 Comments tightenss w/lat flex TMJ Range of Motion Jaw Openning Jaw Openning (mm) 41 Comments Comments C curve to L w/jaw opening PT-OP-Q Treatments Start: 12/08/20 07:31 Freq: Status: Active Protocol: Document 12/29/20 07:32 SP (Rec: 12/29/20 11:45 SP [id number]) Therapeutic Exercises Supine Exercises TS ext over towel Reps/Minutes 20 sec x3 levels Comments cued PPT awarness- felt better leg extended pec stretch Equipment Used over towel roll, noodle, long foam roller Reps/Minutes 30 sec x3 Comments knees bent cervical ext (DNF) Supine Exercise Name CS ext w/chin nod (during corner pec stretch) Side bilateral Reps/Minutes 5 sec hold x5 Comments cued head elevation/ext/ chin nod neutral w/ slow gentle contraction Sidelying Exercises open book Sidelying Exercise Name hand on head TS rotation Side bilateral Resistance Initiate Equipment Used support post LS/pelvis focus TS mob Reps/Minutes x5 Comments cued scap retract/down rotation aware, core fac 4 focus mid TS rotation Standing Exercises pec stretch Standing Exercise Name review HEP Side bilateral Equipment Used at corner Reps/Minutes 30 sec 3x3- different arm ranges Comments cued CS ext neutral w/ chin nod retraction Standing Exercise Name scap retraction focusing on no lumbar ext & neutral cspine Reps/Minutes 12 Comments mod cuing Manual Therapy Treatment Soft Tissue Mobilization SCM, suboccipitals, UT, lev scap, temporalis Body Location B temporalis, SCM, suboccipitals, temoralis Mobilization Type Cross-Friction,Myofascial Release,Rolling,Sustained Pressure Intensity/Depth Moderate Body Position Hooklying Manual Techniques Scapular PNF Type Retraction, depression w/ downward rotation Body Location B scapulothoracic Jt Body Position Sidelying Reps/Duration x5 Comments Max cuing for fluid movement with decreased UT recruitment to prep openbook exercise initiating Self-Care/Home Management Treatment Education Patient Education Home Exercise Program,Pain Management,Posture Other Education Instruction on self application of manual STMs, stretching, MWM to decreased jaw, neck and scapular complex tightness to allow increased ROM/ mobility. Fluid movement during ther ex with proper scap stab and CS positioning to progress strengthening. PT-OP-R Modalities Start: 12/08/20 07:31 Freq: Status: Active Protocol: Document 12/16/20 17:42 [facility] (Rec: 12/16/20 17:59 [facility] [id number]) Hot Pack/Cold Pack Treatment Hot Pack Location cervical to jaw Patient Position Supine Treatment Duration (minutes) 15 PT-OP-T Assessment and Plan Start: 12/08/20 07:31 Freq: Status: Active Protocol: Document 12/29/20 07:32 SP (Rec: 12/29/20 11:45 SP [id number]) Physical Therapy Assessment Goals posture Short Term Goal (STG) Pt will have good desk set up and sleep position in order to dec pain. STG Duration 01/09/21 Wire Brusher Goal (LTG) pt will show improvd posture with scoring of at least 4/5 on VCT & EFT and show good upright positioning w/o cuieng . LTG Duration 02/07/21 NDI Impairment 9/50 Penitentiary Goal (LTG) Pt will improve NDI score to no more than 2/50 to show improved functional ability. LTG Duration 02/07/21 ROM Short Term Goal (STG) Pt will have full cervical ROM without inc pain/tightness. STG Duration 01/08/21 Penitentiary Goal (LTG) pt will have full jaw openings w/o deviation and without pain to improve ability to eat . LTG Duration 02/07/21 jaw pain Short Term Goal (STG) Pt will report no constant jaw or head pain. STG Duration 01/11/21 Penitentiary Goal (LTG) Pt will be able to eat all types of food without increased pain. LTG Duration 02/07/21 Assessment Summary Assessment Pt has difficulty with fluid PNF scapular retraction w/ downward rotation, max cuing to decreased UT recruitment, improved during initiation open book bent arm hand on head and head moving with arm, SLOW fluid mobility as though looking over shoulder backing up driving. Cues continue required CS elongated into retro ext neutral with head nod positioning during scap retraction/ pec stretch corner HEP. Pt states trying to be more aware and pec stretching helping lessen tension on neck / shlds. Physical Therapy Plan Frequency and Duration Frequency of Treatment 2x/Week Duration of Treatment 2months Plan of Care Start Date 12/08/20 Plan of Care End Date 02/07/21 Therapeutic Interventions Therapeutic Interventions Home Exercise Program,Joint Mobilizations,Manual Therapy, Neuromuscular Re-education, Patient/Caregiver Education, Self-Care/Home Management,Soft Tissue Mobilization,Taping, Therapeutic Activities, Therapeutic Exercises Modalities Cold Pack/Ice Massage,Electric Stimulation,Hot Packs, Traction- Mechanical, Ultrasound Next Visit Focus/Plan Next Note Type Treatment Note Next Visit Plan Assess response to pec stretch over noodle/foam roller and facing corner, TS ext over towel roll/foam roll and review scap stabilization with correct posture, initiated open book last tx. Continue cervical retraction & scap retract/depression, progress postural strengthening as tolerated focusing on avoiding UT activation
--- NOTE | 2021-01-02 10:30 | PT.OTN ---
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 Visit Start Time 09:50 Visit Stop Time 10:30 Total Visit Minutes 40 Visit Number 8 Number of EDUCATION ADVISER Visits 2 PT-OP-B Current Condition Start: 12/08/20 07:31 Freq: Status: Active Protocol: Document 12/08/20 15:21 [facility] (Rec: 12/08/20 16:07 [facility] [id number]) Current Condition History of Current Condition Onset Date worse in last 9 months w/ history of 20 or so years Current Complaints L jaw >R History of Current Condition In 20s, Dr. Clement helped her re-align her jaw with splints and has had mult night guards. Before face would ache and hurt, but past 9 months feels like she is eating her mouth guard. She is more vicious in her clenching. Dr. Clement wanted her to be in braces but it was going to cost a lot and be 5 years. It is so sore sometimes it feels like she is has an ear ache L>R and pain goes into L forehead. She has burning on tongue which is being treated w/cymbalta. Pt reports chiro treatment and renay has stated she has been more mobile since starting cymbalta. [place] but face aches . Mm on face feel really tired . Dr Galeas wants her to go back to wearing her mouth guard. Pt stopped d/t feeling like she clenches more and is more sore. She wore it after the appt for a while then lost it and just found it last night. She feels more sore after wearing it and the day after feels more sore. Pt reports she wakes up in the middle of the night then am awake so has to read or take a melatonin to fall back asleep so can take an hour. Sleep difficulty has been worse in the past year. Tingly in mouth on L side of mouth & L sup & lat toungue. 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 Pt reports neck gets sore and tense and last doctor has found tightness in L UT region. Pt sometimes wakes up w/l arm into pinky tingly. Prior Treatments and Tests night splint Treatment Goals Patient/Caregiver Goals be able to dec pain & be able to eat all things (unable to eat jerky) Personal Factors Other Personal Factors That May Effect surgies: breast reduction, Therapy/Recovery bladder mesh lift, re-do vaginal canal, bladder likes to spasm-insurance no longer covers it, can't hold it when bladder spasms PT-OP-C Subjective Start: 12/08/20 07:31 Freq: Status: Active Protocol: Document 01/02/21 09:50 SP (Rec: 01/02/21 10:32 SP [id number]) OP-PT Subjective Patient Comments Patient Comments Pt stated jaw doing alot better, thinks that has better days after not wearing overnight houseperson. 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 PT-OP-F Manual Assessment Start: 12/08/20 07:31 Freq: Status: Active Protocol: Document 12/08/20 15:21 [facility] (Rec: 12/08/20 16:07 [facility] [id number]) Manual Assessments Joint Mobility Assessment Joint Mobility Assessment 1st rib L elevated PT-OP-K Range of Motion Start: 12/08/20 07:31 Freq: Status: Active Protocol: Document 12/08/20 15:21 [facility] (Rec: 12/08/20 16:07 [facility] [id number]) Cervical Spine Range of Motion Cervical Spine Active Degrees Testing Position Sitting Flexion 60 Extension 51 Rotation Left 68 Rotation Right 64 Lateral Flexion Left 38 Lateral Flexion Right 42 Comments tightenss w/lat flex TMJ Range of Motion Jaw Openning Jaw Openning (mm) 41 Comments Comments C curve to L w/jaw opening PT-OP-Q Treatments Start: 12/08/20 07:31 Freq: Status: Active Protocol: Document 01/02/21 09:50 SP (Rec: 01/02/21 10:32 SP [id number]) Therapeutic Exercises Supine Exercises TS ext over towel Supine Exercise Name ts ext/ rolling over foam roller Reps/Minutes 20 sec x3 levels Comments cued PPT awarness- felt better leg extended pec stretch Equipment Used foam roller and 55 cm ball Reps/Minutes 30 sec x3 Comments knees bent Prone Exercises plank off hands/ elbows Prone Exercise Name form during class Reps/Minutes 20 sec hold x5 Comments cued serratus press and max cucing for CS ext neutral w/ chin nod Sidelying Exercises open book Sidelying Exercise Name (hand on heada) TS rotation Side bilateral Resistance Initiate Equipment Used support post LS/pelvis focus TS mob Reps/Minutes x5 Comments cued scap retract/down rotation aware, core fac 4 focus mid TS rotation Sitting Exercises CS rotation w/ chin nod Side bilateral Reps/Minutes x5 reps TS rotation Sitting Exercise Name CS forward neutral, tall posture, arms across chest Side bilateral Reps/Minutes 5 sec hold x5 R and L Standing Exercises pec stretch Standing Exercise Name review HEP Side bilateral Equipment Used at corner Reps/Minutes 30 sec 3x3- different arm ranges Comments cued CS ext neutral w/ chin nod resisted shld ext Standing Exercise Name elbows straight shld ext and depression toward side Side bilateral Equipment Used L1 Reps/Minutes 10 Comments occasional cuing. Manual Therapy Treatment Soft Tissue Mobilization SCM, suboccipitals, UT, lev scap, temporalis Body Location B temporalis, SCM, suboccipitals, temoralis Mobilization Type Cross-Friction,Myofascial Release,Rolling,Sustained Pressure Intensity/Depth Moderate Body Position Hooklying PT-OP-R Modalities Start: 12/08/20 07:31 Freq: Status: Active Protocol: Document 12/16/20 17:42 LR (Rec: 12/16/20 17:59 [facility] [id number]) Hot Pack/Cold Pack Treatment Hot Pack Location cervical to jaw Patient Position Supine Treatment Duration (minutes) 15 PT-OP-T Assessment and Plan Start: 12/08/20 07:31 Freq: Status: Active Protocol: Document 01/02/21 09:50 SP (Rec: 01/02/21 10:32 SP [id number]) Physical Therapy Assessment Goals posture Short Term Goal (STG) Pt will have good desk set up and sleep position in order to dec pain. STG Duration 01/09/21 Paralegal Internship Goal (LTG) pt will show improvd posture with scoring of at least 4/5 on VCT & EFT and show good upright positioning w/o cuieng . LTG Duration 02/07/21 NDI Impairment 9/50 Paralegal Internship Goal (LTG) Pt will improve NDI score to no more than 2/50 to show improved functional ability. LTG Duration 02/07/21 ROM Short Term Goal (STG) Pt will have full cervical ROM without inc pain/tightness. STG Duration 01/08/21 Senior Living Goal (LTG) pt will have full jaw openings w/o deviation and without pain to improve ability to eat . LTG Duration 02/07/21 jaw pain Short Term Goal (STG) Pt will report no constant jaw or head pain. STG Duration 01/11/21 Senior Living Goal (LTG) Pt will be able to eat all types of food without increased pain. LTG Duration 02/07/21 Assessment Summary Assessment Pt tolerated tx well, HEP review with occasional cuing for scap depression awareness, improved with self corrections. Initiated active post neck stretching into flexion and rotation with trunk stabilization and seated forward head and TS rotation. Pt stated helped alot with decreased neck and midback tightness and able to perform at work. Physical Therapy Plan Frequency and Duration Frequency of Treatment 2x/Week Duration of Treatment 2months Plan of Care Start Date 12/08/20 Plan of Care End Date 02/07/21 Therapeutic Interventions Therapeutic Interventions Home Exercise Program,Joint Mobilizations,Manual Therapy, Neuromuscular Re-education, Patient/Caregiver Education, Self-Care/Home Management,Soft Tissue Mobilization,Taping, Therapeutic Activities, Therapeutic Exercises Modalities Cold Pack/Ice Massage,Electric Stimulation,Hot Packs, Traction- Mechanical, Ultrasound Next Visit Focus/Plan Next Note Type Treatment Note Next Visit Plan Assess response CS and TS ext/ rotation dynamic mobility and form during HEP. Continue cervical retraction & scap retract/depression, progress postural strengthening as tolerated focusing on avoiding UT activation
--- NOTE | 2021-01-05 08:16 | PT.OTN ---
Current Diagnoses Dentofacial anomaly, unspecified (01/05/21) Cervicalgia (01/05/21) Muscle weakness (generalized) (01/05/21) Abnormal posture (01/05/21) Jaw pain (01/05/21) Physical Therapy Treatment Note PT-OP-A Visit Information Start: 12/08/20 07:31 Freq: Status: Active Protocol: Document 01/05/21 07:34 SP (Rec: 01/05/21 11:28 SP [id number]) Out-Patient Physical Therapy Visit Information Visit Information Visit Type Treatment Note Visit Note Pt 4 min late for appt. Visit Start Time 07:34 Visit Stop Time 08:16 Total Visit Minutes 42 Visit Number 9 Number of GEODETIC TECHNICIAN Visits 3 PT-OP-B Current Condition Start: 12/08/20 07:31 Freq: Status: Active Protocol: Document 12/08/20 15:21 [facility] (Rec: 12/08/20 16:07 [facility] [id number]) Current Condition History of Current Condition Onset Date worse in last 9 months w/ history of 20 or so years Current Complaints L jaw >R History of Current Condition In 20s, Dr. Clement helped her re-align her jaw with splints and has had mult night guards. Before face would ache and hurt, but past 9 months feels like she is eating her mouth guard. She is more vicious in her clenching. Dr. Clement wanted her to be in braces but it was going to cost a lot and be 5 years. It is so sore sometimes it feels like she is has an ear ache L>R and pain goes into L forehead. She has burning on tongue which is being treated w/cymbalta. Pt reports chiro treatment and renay has stated she has been more mobile since starting cymbalta. [place] but face aches . Mm on face feel really tired . Dr Galeas wants her to go back to wearing her mouth guard. Pt stopped d/t feeling like she clenches more and is more sore. She wore it after the appt for a while then lost it and just found it last night. She feels more sore after wearing it and the day after feels more sore. Pt reports she wakes up in the middle of the night then am awake so has to read or take a melatonin to fall back asleep so can take an hour. Sleep difficulty has been worse in the past year. Tingly in mouth on L side of mouth & L sup & lat toungue. 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 Pt reports neck gets sore and tense and last doctor has found tightness in L UT region. Pt sometimes wakes up w/l arm into pinky tingly. Prior Treatments and Tests night splint Treatment Goals Patient/Caregiver Goals be able to dec pain & be able to eat all things (unable to eat jerky) Personal Factors Other Personal Factors That May Effect surgies: breast reduction, Therapy/Recovery bladder mesh lift, re-do vaginal canal, bladder likes to spasm-insurance no longer covers it, can't hold it when bladder spasms PT-OP-C Subjective Start: 12/08/20 07:31 Freq: Status: Active Protocol: Document 01/05/21 07:34 SP (Rec: 01/05/21 11:28 SP [id number]) OP-PT Subjective Patient Comments Patient Comments Pt stated jaw really tight before went to bed and almost took muscle relaxer, although slept really well, not waking up once last night but jaw is sore on R side, tried to do some self STMs but still not releasing fully. Jaw L>R pain about 8/10 tightness pre tx. PT-OP-F Manual Assessment Start: 12/08/20 07:31 Freq: Status: Active Protocol: Document 12/08/20 15:21 [facility] (Rec: 12/08/20 16:07 [facility] [id number]) Manual Assessments Joint Mobility Assessment Joint Mobility Assessment 1st rib L elevated PT-OP-K Range of Motion Start: 12/08/20 07:31 Freq: Status: Active Protocol: Document 12/08/20 15:21 [facility] (Rec: 12/08/20 16:07 [facility] [id number]) Cervical Spine Range of Motion Cervical Spine Active Degrees Testing Position Sitting Flexion 60 Extension 51 Rotation Left 68 Rotation Right 64 Lateral Flexion Left 38 Lateral Flexion Right 42 Comments tightenss w/lat flex TMJ Range of Motion Jaw Openning Jaw Openning (mm) 41 Comments Comments C curve to L w/jaw opening PT-OP-Q Treatments Start: 12/08/20 07:31 Freq: Status: Active Protocol: Document 01/05/21 07:34 SP (Rec: 01/05/21 11:28 SP [id number]) Therapeutic Exercises Sitting Exercises CS rotation w/ chin nod Side bilateral Reps/Minutes 5 sec hold x5 reps TS rotation Sitting Exercise Name CS forward neutral, tall posture, arms across chest Side bilateral Reps/Minutes 5 sec hold x5 R and L Standing Exercises pec stretch Standing Exercise Name review HEP Side bilateral Equipment Used at corner Reps/Minutes 30 sec 3x3- different arm ranges Comments cued CS ext neutral w/ chin nod resisted shld ext Standing Exercise Name elbows straight shld ext and depression toward side Side bilateral Equipment Used L1 Reps/Minutes 10 Comments occasional cuing. Manual Therapy Treatment Soft Tissue Mobilization masseter, medial pterygoid Body Location B Mobilization Type Rolling,Sustained Pressure, Other Intensity/Depth Moderate Body Position Hooklying Comments intraoral w/open/close of jaw Self-Care/Home Management Treatment Activities Self-Care/Home Management Activities Time spent on side sleep positioning using pillows between LE, alignment CS, pillow front hug, if needed under ribcage. PT-OP-R Modalities Start: 12/08/20 07:31 Freq: Status: Active Protocol: Document 12/16/20 17:42 LR (Rec: 12/16/20 17:59 [facility] [id number]) Hot Pack/Cold Pack Treatment Hot Pack Location cervical to jaw Patient Position Supine Treatment Duration (minutes) 15 PT-OP-T Assessment and Plan Start: 12/08/20 07:31 Freq: Status: Active Protocol: Document 01/05/21 07:34 SP (Rec: 01/05/21 11:28 SP [id number]) Physical Therapy Assessment Goals posture Short Term Goal (STG) Pt will have good desk set up and sleep position in order to dec pain. 01/05/21: pt will bring in pics of workstation, trying to improve monitor positioning. Has appt with sleep clinic . Will assess today sleep positioning- side sleeper. STG Duration 01/09/21 Group Home Goal (LTG) pt will show improvd posture with scoring of at least 4/5 on VCT & EFT and show good upright positioning w/o cuieng . LTG Duration 02/07/21 NDI Impairment 9/50 Putty Remover Goal (LTG) Pt will improve NDI score to no more than 2/50 to show improved functional ability. LTG Duration 02/07/21 ROM Short Term Goal (STG) Pt will have full cervical ROM without inc pain/tightness. 01/05/21: no pain today. STG Duration 01/08/21 Group Home Goal (LTG) pt will have full jaw openings w/o deviation and without pain to improve ability to eat . LTG Duration 02/07/21 jaw pain Short Term Goal (STG) Pt will report no constant jaw or head pain. 01/05/21: pain not consistant and some days no pain. The lateral deviation chewing motion sometimes feel stuck more on L. STG Duration 01/11/21 Group Home Goal (LTG) Pt will be able to eat all types of food without increased pain. LTG Duration 02/07/21 Assessment Summary Assessment Pt responded well to manual intraoral L>R, min cuing for scap stabilization during new HEP given last tx TS and cervical mobility, she stated has helped decrease tightness when sitting at the computer. Improved in scap stabilzation during shld ext with self corrections during eccentric return today. Pt reported jaw tightness reduced from 8/10 to 3/10 by end of tx and improved elevated CS ext in neutral leaving. Review posture at workstation, will bring images next tx to discuss. Physical Therapy Plan Frequency and Duration Frequency of Treatment 2x/Week Duration of Treatment 2months Plan of Care Start Date 12/08/20 Plan of Care End Date 02/07/21 Therapeutic Interventions Therapeutic Interventions Home Exercise Program,Joint Mobilizations,Manual Therapy, Neuromuscular Re-education, Patient/Caregiver Education, Self-Care/Home Management,Soft Tissue Mobilization,Taping, Therapeutic Activities, Therapeutic Exercises Modalities Cold Pack/Ice Massage,Electric Stimulation,Hot Packs, Traction- Mechanical, Ultrasound Next Visit Focus/Plan Next Note Type Treatment Note Next Visit Plan Assess response to manual, continue reviewCS and TS ext/ rotation dynamic mobility w/ scap stabilization awareness. Continue cervical retraction & scap retract/depression, progress postural strengthening as tolerated focusing on avoiding UT activation
--- NOTE | 2021-01-08 18:30 | PT.OTN ---
Current Diagnoses Dentofacial anomaly, unspecified (01/08/21) Cervicalgia (01/08/21) Muscle weakness (generalized) (01/08/21) Abnormal posture (01/08/21) Jaw pain (01/08/21) Physical Therapy Treatment Note PT-OP-A Visit Information Start: 12/08/20 07:31 Freq: Status: Active Protocol: Document 01/08/21 18:22 [facility] (Rec: 01/08/21 18:30 [facility] [id number]) Out-Patient Physical Therapy Visit Information Visit Information Visit Type Treatment Note Visit Start Time 16:50 Visit Stop Time 17:30 Total Visit Minutes 40 Visit Number 10 Number of AUDITING MANAGER Visits 0 PT-OP-B Current Condition Start: 12/08/20 07:31 Freq: Status: Active Protocol: Document 12/08/20 15:21 [facility] (Rec: 12/08/20 16:07 [facility] [id number]) Current Condition History of Current Condition Onset Date worse in last 9 months w/ history of 20 or so years Current Complaints L jaw >R History of Current Condition In 20s, Dr. Clement helped her re-align her jaw with splints and has had mult night guards. Before face would ache and hurt, but past 9 months feels like she is eating her mouth guard. She is more vicious in her clenching. Dr. Clement wanted her to be in braces but it was going to cost a lot and be 5 years. It is so sore sometimes it feels like she is has an ear ache L>R and pain goes into L forehead. She has burning on tongue which is being treated w/cymbalta. Pt reports chiro treatment and reddio has stated she has been more mobile since starting cymbalta. [place] but face aches . Mm on face feel really tired . Dr Galeas wants her to go back to wearing her mouth guard. Pt stopped d/t feeling like she clenches more and is more sore. She wore it after the appt for a while then lost it and just found it last night. She feels more sore after wearing it and the day after feels more sore. Pt reports she wakes up in the middle of the night then am awake so has to read or take a melatonin to fall back asleep so can take an hour. Sleep difficulty has been worse in the past year. Tingly in mouth on L side of mouth & L sup & lat toungue. 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 Pt reports neck gets sore and tense and last doctor has found tightness in L UT region. Pt sometimes wakes up w/l arm into pinky tingly. Prior Treatments and Tests night splint Treatment Goals Patient/Caregiver Goals be able to dec pain & be able to eat all things (unable to eat jerky) Personal Factors Other Personal Factors That May Effect surgies: breast reduction, Therapy/Recovery bladder mesh lift, re-do vaginal canal, bladder likes to spasm-insurance no longer covers it, can't hold it when bladder spasms PT-OP-C Subjective Start: 12/08/20 07:31 Freq: Status: Active Protocol: Document 01/08/21 18:22 [facility] (Rec: 01/08/21 18:30 [facility] [id number]) OP-PT Subjective Patient Comments Patient Comments Pt reprots she realized she had not been doing her jaw exercises as much recently and started them again and noted instant imrpovement in pain. She had focused on more recent exercises. Pt has sleep study set up for end of this month PT-OP-F Manual Assessment Start: 12/08/20 07:31 Freq: Status: Active Protocol: Document 12/08/20 15:21 [facility] (Rec: 12/08/20 16:07 [facility] [id number]) Manual Assessments Joint Mobility Assessment Joint Mobility Assessment 1st rib L elevated PT-OP-K Range of Motion Start: 12/08/20 07:31 Freq: Status: Active Protocol: Document 12/08/20 15:21 [facility] (Rec: 12/08/20 16:07 [facility] [id number]) Cervical Spine Range of Motion Cervical Spine Active Degrees Testing Position Sitting Flexion 60 Extension 51 Rotation Left 68 Rotation Right 64 Lateral Flexion Left 38 Lateral Flexion Right 42 Comments tightenss w/lat flex TMJ Range of Motion Jaw Openning Jaw Openning (mm) 41 Comments Comments C curve to L w/jaw opening PT-OP-Q Treatments Start: 12/08/20 07:31 Freq: Status: Active Protocol: Document 01/08/21 18:22 [facility] (Rec: 01/08/21 18:30 [facility] [id number]) Therapeutic Exercises Sitting Exercises jaw Sitting Exercise Name 1. opening w/blocking ant translation B 2. in mirror avoiding translation Side bilateral Reps/Minutes 10 ea Comments #2 very slow Manual Therapy Treatment Soft Tissue Mobilization oral mm Body Location B masseter, R digastric & B hyoid mm Mobilization Type Sustained Pressure,Other Intensity/Depth Moderate Body Position Hooklying Comments externally masseter, medial pterygoid Body Location B pterygoid Mobilization Type Rolling,Sustained Pressure, Other Intensity/Depth Moderate Body Position Hooklying Comments intraoral w/open/close of jaw Joint Mobilizations C2 Direction R lat glide FM C1 Direction R lat glide FM jaw Joint B Direction distraction FM w/opne/close Self-Care/Home Management Treatment Education Other Education edu on anatomy of jaw & C1 &C2 relation & jaw motion PT-OP-R Modalities Start: 12/08/20 07:31 Freq: Status: Active Protocol: Document 12/16/20 17:42 [facility] (Rec: 12/16/20 17:59 [facility] [id number]) Hot Pack/Cold Pack Treatment Hot Pack Location cervical to jaw Patient Position Supine Treatment Duration (minutes) 15 PT-OP-T Assessment and Plan Start: 12/08/20 07:31 Freq: Status: Active Protocol: Document 01/08/21 18:22 [facility] (Rec: 01/08/21 18:30 [facility] [id number]) Physical Therapy Assessment Goals posture Short Term Goal (STG) Pt will have good desk set up and sleep position in order to dec pain. 01/05/21: pt will bring in pics of workstation, trying to improve monitor positioning. Has appt with sleep clinic . Will assess today sleep positioning- side sleeper. STG Duration 01/09/21 Towel Cabinet Repairer Goal (LTG) pt will show improvd posture with scoring of at least 4/5 on VCT & EFT and show good upright positioning w/o cuieng . LTG Duration 02/07/21 NDI Impairment 9/50 Shelter Goal (LTG) Pt will improve NDI score to no more than 2/50 to show improved functional ability. LTG Duration 02/07/21 ROM Short Term Goal (STG) Pt will have full cervical ROM without inc pain/tightness. 01/05/21: no pain today. STG Duration 01/08/21 Towel Cabinet Repairer Goal (LTG) pt will have full jaw openings w/o deviation and without pain to improve ability to eat . LTG Duration 02/07/21 jaw pain Short Term Goal (STG) Pt will report no constant jaw or head pain. 01/05/21: pain not consistant and some days no pain. The lateral deviation chewing motion sometimes feel stuck more on L. STG Duration 01/11/21 Shelter Goal (LTG) Pt will be able to eat all types of food without increased pain. LTG Duration 02/07/21 Assessment Summary Assessment Pt had imrpoved jaw opening after manual treatment w/less fwd and less lat translation and L click occurring later. W /slow opening and working in mirror w/open/close, pt is able to avoid the L click. Physical Therapy Plan Frequency and Duration Frequency of Treatment 2x/Week Duration of Treatment 2months Plan of Care Start Date 12/08/20 Plan of Care End Date 02/07/21 Next Visit Focus/Plan Next Note Type Treatment Note Next Visit Plan Review jaw opening w/mirror for avoiding deviation & opne/ close w/fingers blocking ant translation, work manually to dec R shear w/opening, work on plank & UE WB positioning
--- NOTE | 2021-01-12 08:16 | PT.OTN ---
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) Cervicalgia (01/12/21) Muscle weakness (generalized) (01/12/21) Abnormal posture (01/12/21) Jaw pain (01/12/21) Physical Therapy Treatment Note PT-OP-A Visit Information Start: 12/08/20 07:31 Freq: Status: Active Protocol: Document 01/12/21 07:31 SP (Rec: 01/12/21 08:34 SP [id number]) Out-Patient Physical Therapy Visit Information Visit Information Visit Type Treatment Note Visit Start Time 07:31 Visit Stop Time 08:16 Total Visit Minutes 45 Visit Number 11 Number of RAIL CAR LOADER Visits 1 PT-OP-B Current Condition Start: 12/08/20 07:31 Freq: Status: Active Protocol: Document 12/08/20 15:21 [facility] (Rec: 12/08/20 16:07 [facility] [id number]) Current Condition History of Current Condition Onset Date worse in last 9 months w/ history of 20 or so years Current Complaints L jaw >R History of Current Condition In 20s, Dr. Clement helped her re-align her jaw with splints and has had mult night guards. Before face would ache and hurt, but past 9 months feels like she is eating her mouth guard. She is more vicious in her clenching. Dr. Clement wanted her to be in braces but it was going to cost a lot and be 5 years. It is so sore sometimes it feels like she is has an ear ache L>R and pain goes into L forehead. She has burning on tongue which is being treated w/cymbalta. Pt reports chiro treatment and renay has stated she has been more mobile since starting cymbalta. [place] but face aches . Mm on face feel really tired . Dr Galeas wants her to go back to wearing her mouth guard. Pt stopped d/t feeling like she clenches more and is more sore. She wore it after the appt for a while then lost it and just found it last night. She feels more sore after wearing it and the day after feels more sore. Pt reports she wakes up in the middle of the night then am awake so has to read or take a melatonin to fall back asleep so can take an hour. Sleep difficulty has been worse in the past year. Tingly in mouth on L side of mouth & L sup & lat toungue. 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 Pt reports neck gets sore and tense and last doctor has found tightness in L UT region. Pt sometimes wakes up w/l arm into pinky tingly. Prior Treatments and Tests night splint Treatment Goals Patient/Caregiver Goals be able to dec pain & be able to eat all things (unable to eat jerky) Personal Factors Other Personal Factors That May Effect surgies: breast reduction, Therapy/Recovery bladder mesh lift, re-do vaginal canal, bladder likes to spasm-insurance no longer covers it, can't hold it when bladder spasms PT-OP-C Subjective Start: 12/08/20 07:31 Freq: Status: Active Protocol: Document 01/12/21 07:31 SP (Rec: 01/12/21 08:34 SP [id number]) OP-PT Subjective Patient Comments Patient Comments Pt stated Fri slept really well but Sat was one of the worst days in a while in regard to Jaw pain. Tried manual, all exercises, warm pack and no significant relief, also utilized Voltaren ointment toward end of day to help relief. Tuesday was better and today just jaw soreness more L as usual. PT-OP-F Manual Assessment Start: 12/08/20 07:31 Freq: Status: Active Protocol: Document 12/08/20 15:21 [facility] (Rec: 12/08/20 16:07 [facility] [id number]) Manual Assessments Joint Mobility Assessment Joint Mobility Assessment 1st rib L elevated PT-OP-K Range of Motion Start: 12/08/20 07:31 Freq: Status: Active Protocol: Document 12/08/20 15:21 [facility] (Rec: 12/08/20 16:07 [facility] [id number]) Cervical Spine Range of Motion Cervical Spine Active Degrees Testing Position Sitting Flexion 60 Extension 51 Rotation Left 68 Rotation Right 64 Lateral Flexion Left 38 Lateral Flexion Right 42 Comments tightenss w/lat flex TMJ Range of Motion Jaw Openning Jaw Openning (mm) 41 Comments Comments C curve to L w/jaw opening PT-OP-Q Treatments Start: 12/08/20 07:31 Freq: Status: Active Protocol: Document 01/12/21 07:31 SP (Rec: 01/12/21 08:34 SP [id number]) Therapeutic Exercises Sitting Exercises jaw Sitting Exercise Name 1. opening w/blocking ant translation B 2. in mirror avoiding translation Side bilateral Equipment Used (standing in front mirror) Reps/Minutes 10 ea Comments #2 very slow Standing Exercises pec stretch Side bilateral Equipment Used at corner Reps/Minutes 30 sec 3x3- different arm ranges Comments cued CS ext neutral w/ chin nod alignment retraction Standing Exercise Name scap retraction focusing on no lumbar ext & neutral cspine Reps/Minutes 5 x10 sec Comments min cuing resisted shld ext Standing Exercise Name elbows straight shld ext and depression toward side Side bilateral Equipment Used L1 Reps/Minutes 2 sec hold x15 Comments occasional cuing, relaxed jaw w/small open/close Manual Therapy Treatment Soft Tissue Mobilization oral mm Body Location B masseter, R digastric & B hyoid mm Mobilization Type Sustained Pressure,Other Intensity/Depth Moderate Body Position Hooklying Comments externally SCM, suboccipitals, UT, lev scap, temporalis Body Location B temporalis, SCM, suboccipitals, temoralis Mobilization Type Cross-Friction,Myofascial Release,Rolling,Sustained Pressure Intensity/Depth Moderate Body Position Hooklying masseter, medial pterygoid Body Location B masseter, med pterygoid Mobilization Type Rolling,Sustained Pressure, Other Intensity/Depth Moderate Body Position Hooklying Comments intraoral w/open/close of jaw PT-OP-R Modalities Start: 12/08/20 07:31 Freq: Status: Active Protocol: Document 12/16/20 17:42 [facility] (Rec: 12/16/20 17:59 [facility] [id number]) Hot Pack/Cold Pack Treatment Hot Pack Location cervical to jaw Patient Position Supine Treatment Duration (minutes) 15 PT-OP-T Assessment and Plan Start: 12/08/20 07:31 Freq: Status: Active Protocol: Document 01/12/21 07:31 SP (Rec: 01/12/21 08:34 SP [id number]) Physical Therapy Assessment Goals posture Short Term Goal (STG) Pt will have good desk set up and sleep position in order to dec pain. 01/05/21: pt will bring in pics of workstation, trying to improve monitor positioning. Has appt with sleep clinic . Will assess today sleep positioning- side sleeper. Pt will have good desk set up and sleep position in order to dec pain. 01/05/21: pt will bring in pics of workstation, trying to improve monitor positioning. Has appt with sleep clinic . Will assess today sleep positioning- side sleeper. STG Duration 01/09/21 [facility] Goal (LTG) pt will show improvd posture with scoring of at least 4/5 on VCT & EFT and show good upright positioning w/o cuieng . LTG Duration 02/07/21 NDI Impairment 9/50 [facility] Goal (LTG) Pt will improve NDI score to no more than 2/50 to show improved functional ability. LTG Duration 02/07/21 ROM Short Term Goal (STG) Pt will have full cervical ROM without inc pain/tightness. 01/05/21: no pain today. STG Duration 01/08/21 [facility] Goal (LTG) pt will have full jaw openings w/o deviation and without pain to improve ability to eat . LTG Duration 02/07/21 jaw pain Short Term Goal (STG) Pt will report no constant jaw or head pain. 01/05/21: pain not consistant and some days no pain. The lateral deviation chewing motion sometimes feel stuck more on L. STG Duration 01/11/21 Sluice Tender Goal (LTG) Pt will be able to eat all types of food without increased pain. LTG Duration 02/07/21 Assessment Summary Assessment Pt had improvement in jaw opening and decreased soreness after manual intraoral, reviewed jaw exercises and alignment open/closing in mirror with less lateral translation to R, noted muscle quivering challenge, no popping on L end of tx. My jaw feels alot better. I just wish I knew what I was doing to stop my pain from happening . I might look into a hypnotist to see if might help . Physical Therapy Plan Frequency and Duration Frequency of Treatment 2x/Week Duration of Treatment 2months Plan of Care Start Date 12/08/20 Plan of Care End Date 02/07/21 Therapeutic Interventions Therapeutic Interventions Home Exercise Program,Joint Mobilizations,Manual Therapy, Neuromuscular Re-education, Patient/Caregiver Education, Self-Care/Home Management,Soft Tissue Mobilization,Taping, Therapeutic Activities, Therapeutic Exercises Modalities Cold Pack/Ice Massage,Electric Stimulation,Hot Packs, Traction- Mechanical, Ultrasound Next Visit Focus/Plan Next Note Type Treatment Note Next Visit Plan Continue to review jaw opening w/mirror for avoiding deviation & opne/close w/ fingers blocking ant translation, work manually to dec R shear w/opening, work on plank & UE WB positioning next tx. Pt may benefit from dry needling, recommended discuss with supervising PT and general practioner with continued team approach assist .
--- NOTE | 2021-01-14 14:07 | PT.OTN ---
Current Diagnoses Dentofacial anomaly, unspecified (01/14/21) Cervicalgia (01/14/21) Muscle weakness (generalized) (01/14/21) Abnormal posture (01/14/21) Jaw pain (01/14/21) Physical Therapy Treatment Note PT-OP-A Visit Information Start: 12/08/20 07:31 Freq: Status: Active Protocol: Document 01/14/21 13:59 [facility] (Rec: 01/14/21 14:07 [facility] [id number]) Out-Patient Physical Therapy Visit Information Visit Information Visit Type Treatment Note Visit Start Time 08:23 Visit Stop Time 08:08 Total Visit Minutes 45 Visit Number 12 Number of STEM THRESHING MACHINE OPERATOR Visits 0 PT-OP-B Current Condition Start: 12/08/20 07:31 Freq: Status: Active Protocol: Document 12/08/20 15:21 [facility] (Rec: 12/08/20 16:07 [facility] [id number]) Current Condition History of Current Condition Onset Date worse in last 9 months w/ history of 20 or so years Current Complaints L jaw >R History of Current Condition In 20s, Dr. Clement helped her re-align her jaw with splints and has had mult night guards. Before face would ache and hurt, but past 9 months feels like she is eating her mouth guard. She is more vicious in her clenching. Dr. Clement wanted her to be in braces but it was going to cost a lot and be 5 years. It is so sore sometimes it feels like she is has an ear ache L>R and pain goes into L forehead. She has burning on tongue which is being treated w/cymbalta. Pt reports chiro treatment and reddio has stated she has been more mobile since starting cymbalta. [place] but face aches . Mm on face feel really tired . Dr Galeas wants her to go back to wearing her mouth guard. Pt stopped d/t feeling like she clenches more and is more sore. She wore it after the appt for a while then lost it and just found it last night. She feels more sore after wearing it and the day after feels more sore. Pt reports she wakes up in the middle of the night then am awake so has to read or take a melatonin to fall back asleep so can take an hour. Sleep difficulty has been worse in the past year. Tingly in mouth on L side of mouth & L sup & lat toungue. 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 Pt reports neck gets sore and tense and last doctor has found tightness in L UT region. Pt sometimes wakes up w/l arm into pinky tingly. Prior Treatments and Tests night splint Treatment Goals Patient/Caregiver Goals be able to dec pain & be able to eat all things (unable to eat jerky) Personal Factors Other Personal Factors That May Effect surgies: breast reduction, Therapy/Recovery bladder mesh lift, re-do vaginal canal, bladder likes to spasm-insurance no longer covers it, can't hold it when bladder spasms PT-OP-C Subjective Start: 12/08/20 07:31 Freq: Status: Active Protocol: Document 01/14/21 13:59 [facility] (Rec: 01/14/21 14:07 [facility] [id number]) OP-PT Subjective Patient Comments Patient Comments Pt reprots wearintg her mouth guard tuesday really made her pain bad. Notes its been a bad week for pain but also a stressful week. PT-OP-F Manual Assessment Start: 12/08/20 07:31 Freq: Status: Active Protocol: Document 12/08/20 15:21 [facility] (Rec: 12/08/20 16:07 [facility] [id number]) Manual Assessments Joint Mobility Assessment Joint Mobility Assessment 1st rib L elevated PT-OP-K Range of Motion Start: 12/08/20 07:31 Freq: Status: Active Protocol: Document 12/08/20 15:21 [facility] (Rec: 12/08/20 16:07 [facility] [id number]) Cervical Spine Range of Motion Cervical Spine Active Degrees Testing Position Sitting Flexion 60 Extension 51 Rotation Left 68 Rotation Right 64 Lateral Flexion Left 38 Lateral Flexion Right 42 Comments tightenss w/lat flex TMJ Range of Motion Jaw Openning Jaw Openning (mm) 41 Comments Comments C curve to L w/jaw opening PT-OP-Q Treatments Start: 12/08/20 07:31 Freq: Status: Active Protocol: Document 01/14/21 13:59 [facility] (Rec: 01/14/21 14:07 [facility] [id number]) Therapeutic Exercises Supine Exercises diaphragmatic breathing Reps/Minutes 6 DNF Supine Exercise Name head lift w/chin tuck(very small lift) Reps/Minutes 5sec x8 Sitting Exercises jaw Sitting Exercise Name 1. opening w/blocking ant translation B 2. in mirror avoiding translation Side bilateral Equipment Used (standing in front mirror) Reps/Minutes 5ea Comments #2 very slow Manual Therapy Treatment Soft Tissue Mobilization oral mm Body Location B masseter, R digastric & B hyoid mm Mobilization Type Sustained Pressure,Other Intensity/Depth Moderate Body Position Hooklying Comments externally SCM, suboccipitals, UT, lev scap, temporalis Body Location B temporalis, SCM, suboccipitals Mobilization Type Cross-Friction,Myofascial Release,Rolling,Sustained Pressure Intensity/Depth Moderate Body Position Hooklying Joint Mobilizations C2 Direction R lat glide FM C1 Direction R lat glide FM jaw Joint B Direction distraction FM w/opne/close PT-OP-R Modalities Start: 12/08/20 07:31 Freq: Status: Active Protocol: Document 12/16/20 17:42 [facility] (Rec: 12/16/20 17:59 [facility] [id number]) Hot Pack/Cold Pack Treatment Hot Pack Location cervical to jaw Patient Position Supine Treatment Duration (minutes) 15 PT-OP-T Assessment and Plan Start: 12/08/20 07:31 Freq: Status: Active Protocol: Document 01/14/21 13:59 [facility] (Rec: 01/14/21 14:07 [facility] [id number]) Physical Therapy Assessment Goals posture Short Term Goal (STG) Pt will have good desk set up and sleep position in order to dec pain. 01/05/21: pt will bring in pics of workstation, trying to improve monitor positioning. Has appt with sleep clinic . Will assess today sleep positioning- side sleeper. Pt will have good desk set up and sleep position in order to dec pain. 01/05/21: pt will bring in pics of workstation, trying to improve monitor positioning. Has appt with sleep clinic . Will assess today sleep positioning- side sleeper. STG Duration 01/09/21 Shelter Goal (LTG) pt will show improvd posture with scoring of at least 4/5 on VCT & EFT and show good upright positioning w/o cuieng . LTG Duration 02/07/21 NDI Impairment 9/50 Horse Farm Manager Goal (LTG) Pt will improve NDI score to no more than 2/50 to show improved functional ability. LTG Duration 02/07/21 ROM Short Term Goal (STG) Pt will have full cervical ROM without inc pain/tightness. 01/05/21: no pain today. STG Duration 01/08/21 Horse Farm Manager Goal (LTG) pt will have full jaw openings w/o deviation and without pain to improve ability to eat . LTG Duration 02/07/21 jaw pain Short Term Goal (STG) Pt will report no constant jaw or head pain. 01/05/21: pain not consistant and some days no pain. The lateral deviation chewing motion sometimes feel stuck more on L. STG Duration 01/11/21 Horse Farm Manager Goal (LTG) Pt will be able to eat all types of food without increased pain. LTG Duration 02/07/21 Assessment Summary Assessment pt had improved ability to rest tounge in mouth after treatment w/less clenching along w/dec clicking w/opening and dec deviation. She was edcuated on importance of diaphragmatic breathing & neckstability. Physical Therapy Plan Frequency and Duration Frequency of Treatment 2x/Week Duration of Treatment 2months Plan of Care Start Date 12/08/20 Plan of Care End Date 02/07/21 Next Visit Focus/Plan Next Note Type Treatment Note Next Visit Plan cont to work on form of exercises & posture & cervical stability
--- NOTE | 2021-01-26 09:48 | PT.OTN ---
Current Diagnoses Dentofacial anomaly, unspecified (01/26/21) Cervicalgia (01/26/21) Muscle weakness (generalized) (01/26/21) Abnormal posture (01/26/21) Jaw pain (01/26/21) Physical Therapy Treatment Note PT-OP-A Visit Information Start: 12/08/20 07:31 Freq: Status: Active Protocol: Document 01/26/21 08:16 [facility] (Rec: 01/26/21 09:48 [facility] [id number]) Out-Patient Physical Therapy Visit Information Visit Information Visit Type Treatment Note Visit Start Time 08:17 Visit Stop Time 08:58 Total Visit Minutes 41 Visit Number 13 Number of SENIOR MARKETING SPECIALIST Visits 0 PT-OP-B Current Condition Start: 12/08/20 07:31 Freq: Status: Active Protocol: Document 12/08/20 15:21 [facility] (Rec: 12/08/20 16:07 [facility] [id number]) Current Condition History of Current Condition Onset Date worse in last 9 months w/ history of 20 or so years Current Complaints L jaw >R History of Current Condition In 20s, Dr. Clement helped her re-align her jaw with splints and has had mult night guards. Before face would ache and hurt, but past 9 months feels like she is eating her mouth guard. She is more vicious in her clenching. Dr. Clement wanted her to be in braces but it was going to cost a lot and be 5 years. It is so sore sometimes it feels like she is has an ear ache L>R and pain goes into L forehead. She has burning on tongue which is being treated w/cymbalta. Pt reports chiro treatment and renay has stated she has been more mobile since starting cymbalta. [place] but face aches . Mm on face feel really tired . Dr Galeas wants her to go back to wearing her mouth guard. Pt stopped d/t feeling like she clenches more and is more sore. She wore it after the appt for a while then lost it and just found it last night. She feels more sore after wearing it and the day after feels more sore. Pt reports she wakes up in the middle of the night then am awake so has to read or take a melatonin to fall back asleep so can take an hour. Sleep difficulty has been worse in the past year. Tingly in mouth on L side of mouth & L sup & lat toungue. 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 Pt reports neck gets sore and tense and last doctor has found tightness in L UT region. Pt sometimes wakes up w/l arm into pinky tingly. Prior Treatments and Tests night splint Treatment Goals Patient/Caregiver Goals be able to dec pain & be able to eat all things (unable to eat jerky) Personal Factors Other Personal Factors That May Effect surgies: breast reduction, Therapy/Recovery bladder mesh lift, re-do vaginal canal, bladder likes to spasm-insurance no longer covers it, can't hold it when bladder spasms PT-OP-C Subjective Start: 12/08/20 07:31 Freq: Status: Active Protocol: Document 01/26/21 08:16 [facility] (Rec: 01/26/21 09:48 [facility] [id number]) OP-PT Subjective Patient Comments Patient Comments Pt reprots she thinks she firuged out oen thing that makes jaw worse. WHen she sleeps, she puts her hadnd against her face. Feels better since stopped Patient Reported Progress Improving PT-OP-F Manual Assessment Start: 12/08/20 07:31 Freq: Status: Active Protocol: Document 12/08/20 15:21 [facility] (Rec: 12/08/20 16:07 [facility] [id number]) Manual Assessments Joint Mobility Assessment Joint Mobility Assessment 1st rib L elevated PT-OP-K Range of Motion Start: 12/08/20 07:31 Freq: Status: Active Protocol: Document 12/08/20 15:21 [facility] (Rec: 12/08/20 16:07 [facility] [id number]) Cervical Spine Range of Motion Cervical Spine Active Degrees Testing Position Sitting Flexion 60 Extension 51 Rotation Left 68 Rotation Right 64 Lateral Flexion Left 38 Lateral Flexion Right 42 Comments tightenss w/lat flex TMJ Range of Motion Jaw Openning Jaw Openning (mm) 41 Comments Comments C curve to L w/jaw opening PT-OP-Q Treatments Start: 12/08/20 07:31 Freq: Status: Active Protocol: Document 01/26/21 08:16 [facility] (Rec: 01/26/21 09:48 [facility] [id number]) Therapeutic Exercises Supine Exercises serratus punch Side bilateral Reps/Minutes 15 Prone Exercises plank off hands/ elbows Prone Exercise Name 1. ahnds & feet 2. forearms & feet Side bilateral Reps/Minutes 30 sec x2 ea Comments max ceuing fro scap positon Other Exercises quadruped Other Exercise Name serratus punch Side bilateral Reps/Minutes 15 Comments max cueing Manual Therapy Treatment Soft Tissue Mobilization cranium Mobilization Type Myofascial Release Intensity/Depth Superficial oral mm Body Location B masseter, R digastric & B hyoid mm, B temporalis Mobilization Type Sustained Pressure,Other Intensity/Depth Moderate Body Position Hooklying Comments externally Self-Care/Home Management Treatment Education Other Education discussion sleep position and ways to avoid hands at face pressing on jaw like holding pillow, edu to make sure entire body is lined up PT-OP-R Modalities Start: 12/08/20 07:31 Freq: Status: Active Protocol: Document 12/16/20 17:42 [facility] (Rec: 12/16/20 17:59 [facility] [id number]) Hot Pack/Cold Pack Treatment Hot Pack Location cervical to jaw Patient Position Supine Treatment Duration (minutes) 15 PT-OP-T Assessment and Plan Start: 12/08/20 07:31 Freq: Status: Active Protocol: Document 01/26/21 08:16 [facility] (Rec: 01/26/21 09:48 [facility] [id number]) Physical Therapy Assessment Goals posture Short Term Goal (STG) Pt will have good desk set up and sleep position in order to dec pain. 01/05/21: pt will bring in pics of workstation, trying to improve monitor positioning. Has appt with sleep clinic . Will assess today sleep positioning- side sleeper. Pt will have good desk set up and sleep position in order to dec pain. 01/05/21: pt will bring in pics of workstation, trying to improve monitor positioning. Has appt with sleep clinic . Will assess today sleep positioning- side sleeper. STG Duration 01/09/21 [facility] Goal (LTG) pt will show improvd posture with scoring of at least 4/5 on VCT & EFT and show good upright positioning w/o cuieng . LTG Duration 02/07/21 NDI Impairment 9/50 Community Health Program Representative Goal (LTG) Pt will improve NDI score to no more than 2/50 to show improved functional ability. LTG Duration 02/07/21 ROM Short Term Goal (STG) Pt will have full cervical ROM without inc pain/tightness. 01/05/21: no pain today. STG Duration 01/08/21 Community Health Program Representative Goal (LTG) pt will have full jaw openings w/o deviation and without pain to improve ability to eat . LTG Duration 02/07/21 jaw pain Short Term Goal (STG) Pt will report no constant jaw or head pain. 01/05/21: pain not consistant and some days no pain. The lateral deviation chewing motion sometimes feel stuck more on L. STG Duration 01/11/21 Community Health Program Representative Goal (LTG) Pt will be able to eat all types of food without increased pain. LTG Duration 02/07/21 Assessment Summary Assessment pt requred max cueing for scap position when WB as seh tends to have scap elevation, engaging neck mm duirng WB activities. improved with training. Imprvoing jaw openng /closing. Physical Therapy Plan Frequency and Duration Frequency of Treatment 2x/Week Duration of Treatment 2months Plan of Care Start Date 12/08/20 Plan of Care End Date 02/07/21 Next Visit Focus/Plan Next Note Type Treatment Note Next Visit Plan cont to work on form of exercises & posture & cervical stability
--- NOTE | 2021-02-02 09:07 | PT.OTN ---
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) Cervicalgia (02/02/21) Muscle weakness (generalized) (02/02/21) Abnormal posture (02/02/21) Jaw pain (02/02/21) Physical Therapy Treatment Note PT-OP-A Visit Information Start: 12/08/20 07:31 Freq: Status: Active Protocol: Document 02/02/21 08:13 [facility] (Rec: 02/02/21 09:07 [facility] [id number]) Out-Patient Physical Therapy Visit Information Visit Information Visit Type Treatment Note Visit Start Time 08:17 Visit Stop Time 08:58 Total Visit Minutes 41 Visit Number 14 Number of SMOOTH PLATER Visits 0 PT-OP-B Current Condition Start: 12/08/20 07:31 Freq: Status: Active Protocol: Document 12/08/20 15:21 [facility] (Rec: 12/08/20 16:07 [facility] [id number]) Current Condition History of Current Condition Onset Date worse in last 9 months w/ history of 20 or so years Current Complaints L jaw >R History of Current Condition In 20s, Dr. Clement helped her re-align her jaw with splints and has had mult night guards. Before face would ache and hurt, but past 9 months feels like she is eating her mouth guard. She is more vicious in her clenching. Dr. Clement wanted her to be in braces but it was going to cost a lot and be 5 years. It is so sore sometimes it feels like she is has an ear ache L>R and pain goes into L forehead. She has burning on tongue which is being treated w/cymbalta. Pt reports chiro treatment and renay has stated she has been more mobile since starting cymbalta. [place] but face aches . Mm on face feel really tired . Dr Galeas wants her to go back to wearing her mouth guard. Pt stopped d/t feeling like she clenches more and is more sore. She wore it after the appt for a while then lost it and just found it last night. She feels more sore after wearing it and the day after feels more sore. Pt reports she wakes up in the middle of the night then am awake so has to read or take a melatonin to fall back asleep so can take an hour. Sleep difficulty has been worse in the past year. Tingly in mouth on L side of mouth & L sup & lat toungue. 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 Pt reports neck gets sore and tense and last doctor has found tightness in L UT region. Pt sometimes wakes up w/l arm into pinky tingly. Prior Treatments and Tests night splint Treatment Goals Patient/Caregiver Goals be able to dec pain & be able to eat all things (unable to eat jerky) Personal Factors Other Personal Factors That May Effect surgies: breast reduction, Therapy/Recovery bladder mesh lift, re-do vaginal canal, bladder likes to spasm-insurance no longer covers it, can't hold it when bladder spasms PT-OP-C Subjective Start: 12/08/20 07:31 Freq: Status: Active Protocol: Document 02/02/21 08:13 [facility] (Rec: 02/02/21 09:07 [facility] [id number]) OP-PT Subjective Patient Comments Patient Comments Pt reports sleep appt went well and MD talked about potentially getting a specific mouth guard to help pain along w/sleep apnea Patient Reported Progress Improving PT-OP-F Manual Assessment Start: 12/08/20 07:31 Freq: Status: Active Protocol: Document 12/08/20 15:21 [facility] (Rec: 12/08/20 16:07 [facility] [id number]) Manual Assessments Joint Mobility Assessment Joint Mobility Assessment 1st rib L elevated PT-OP-J Posture/Palpation/Skin Start: 12/08/20 07:31 Freq: Status: Active Protocol: Document 02/02/21 08:13 [facility] (Rec: 02/02/21 09:07 [facility] [id number]) Posture Evaluation Gagan Postural Classification System Vertebral Compression Test 4 Elbow Flexion Test 3 PT-OP-K Range of Motion Start: 12/08/20 07:31 Freq: Status: Active Protocol: Document 02/02/21 08:13 [facility] (Rec: 02/02/21 09:07 [facility] [id number]) Cervical Spine Range of Motion Cervical Spine Active Degrees Testing Position Sitting Flexion 60 Extension 64 Rotation Left 80 Rotation Right 78 Lateral Flexion Left 45 Lateral Flexion Right 47 TMJ Range of Motion Jaw Openning Jaw Openning (mm) 48 PT-OP-Q Treatments Start: 12/08/20 07:31 Freq: Status: Active Protocol: Document 02/02/21 08:13 [facility] (Rec: 02/02/21 09:07 [facility] [id number]) Manual Therapy Treatment Soft Tissue Mobilization oral mm Body Location B masseter, R digastric & B hyoid mm, B temporalis Mobilization Type Sustained Pressure,Other Intensity/Depth Moderate Body Position Hooklying Comments externally masseter, medial pterygoid Body Location B masseter, med pterygoid Mobilization Type Rolling,Sustained Pressure, Other Intensity/Depth Moderate Body Position Hooklying Comments intraoral w/open/close of jaw Joint Mobilizations C1 Direction L lat glide Self-Care/Home Management Treatment Education Other Education edu on importance of posture & position and importance of sleep study. discussed talking with re: massage referral and seeing DO fro dry needling PT-OP-R Modalities Start: 12/08/20 07:31 Freq: Status: Active Protocol: Document 12/16/20 17:42 [facility] (Rec: 12/16/20 17:59 [facility] [id number]) Hot Pack/Cold Pack Treatment Hot Pack Location cervical to jaw Patient Position Supine Treatment Duration (minutes) 15 PT-OP-T Assessment and Plan Start: 12/08/20 07:31 Freq: Status: Active Protocol: Document 02/02/21 08:13 [facility] (Rec: 02/02/21 09:07 [facility] [id number]) Physical Therapy Assessment Goals posture Short Term Goal (STG) Pt will have good desk set up and sleep position in order to dec pain. 01/05/21: pt will bring in pics of workstation, trying to improve monitor positioning. Has appt with sleep clinic . Will assess today sleep positioning- side sleeper. 02/02-pt notes she still needs to make some changes to desk. Has better sleep position and less pain now Pt will have good desk set up and sleep position in order to dec pain. 01/05/21: pt will bring in pics of workstation, trying to improve monitor positioning. Has appt with sleep clinic . Will assess today sleep positioning- side sleeper. STG Duration 03/04/21 Perfect Binder Setter Goal (LTG) pt will show improvd posture with scoring of at least 4/5 on VCT & EFT and show good upright positioning w/o cuieng . 02/02-doing well LTG Duration 04/04/21 NDI Impairment 9/50 Perfect Binder Setter Goal (LTG) Pt will improve NDI score to no more than 2/50 to show improved functional ability. 02/02-improved to 7 LTG Duration 03/04/21 ROM Short Term Goal (STG) Pt will have full cervical ROM without inc pain/tightness. 01/05/21: no pain today. STG Duration achieved Perfect Binder Setter Goal (LTG) pt will have full jaw openings w/o deviation and without pain to improve ability to eat . LTG Duration achieved jaw pain Short Term Goal (STG) Pt will report no constant jaw or head pain. 01/05/21: pain not consistant and some days no pain. The lateral deviation chewing motion sometimes feel stuck more on L. STG Duration no longer constant, intermittent Perfect Binder Setter Goal (LTG) Pt will be able to eat all types of food without increased pain. LTG Duration achieved Assessment Summary Assessment Pt has made excellent progress towards goals and is doing much better with jaw painw hcih is more intermittent now. She is less limited in what she eats and has less clicking . COnt PT to work on jaw mobility & stability to dec pain. Physical Therapy Plan Frequency and Duration Frequency of Treatment 1-2x week Duration of Treatment 2months Plan of Care Start Date 02/02/21 Plan of Care End Date 04/04/21 Therapeutic Interventions Therapeutic Interventions Home Exercise Program,Joint Mobilizations,Manual Therapy, Neuromuscular Re-education, Patient/Caregiver Education, Self-Care/Home Management,Soft Tissue Mobilization,Taping, Therapeutic Activities, Therapeutic Exercises Modalities Cold Pack/Ice Massage,Electric Stimulation,Hot Packs, Traction- Mechanical, Ultrasound Next Visit Focus/Plan Next Note Type Treatment Note Next Visit Plan cont to work on form of exercises & posture & cervical stability, review plank & quadruped position
--- NOTE | 2021-02-02 09:08 | PT.OPPOC ---
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) Cervicalgia (02/02/21) Muscle weakness (generalized) (02/02/21) Abnormal posture (02/02/21) Jaw pain (02/02/21) Visit Care Team Role Provider Type Jak Nicholson MD Primary Care Provider Physician Specialty: Family Practice Address: [address] [place] [address], [id number] Email: [email or web address] Amador Galeas DDS Attending Provider Non-Staff Referring Provider Specialty: Dentistry Address: [address] [place] [address], [address], [address] Email: Plan Of Care PT-OP-T Assessment and Plan Start: 12/08/20 07:31 Freq: Status: Active Protocol: Document 02/02/21 08:13 [facility] (Rec: 02/02/21 09:07 [facility] [id number]) Physical Therapy Assessment Goals posture Short Term Goal (STG) Pt will have good desk set up and sleep position in order to dec pain. 01/05/21: pt will bring in pics of workstation, trying to improve monitor positioning. Has appt with sleep clinic . Will assess today sleep positioning- side sleeper. 02/02-pt notes she still needs to make some changes to desk. Has better sleep position and less pain now Pt will have good desk set up and sleep position in order to dec pain. 01/05/21: pt will bring in pics of workstation, trying to improve monitor positioning. Has appt with sleep clinic . Will assess today sleep positioning- side sleeper. STG Duration 03/04/21 Environmental Monitoring Specialist Goal (LTG) pt will show improvd posture with scoring of at least 4/5 on VCT & EFT and show good upright positioning w/o cuieng . 02/02-doing well LTG Duration 04/04/21 NDI Impairment 9/50 Environmental Monitoring Specialist Goal (LTG) Pt will improve NDI score to no more than 2/50 to show improved functional ability. 02/02-improved to 7 LTG Duration 03/04/21 ROM Short Term Goal (STG) Pt will have full cervical ROM without inc pain/tightness. 01/05/21: no pain today. STG Duration achieved Environmental Monitoring Specialist Goal (LTG) pt will have full jaw openings w/o deviation and without pain to improve ability to eat . LTG Duration achieved jaw pain Short Term Goal (STG) Pt will report no constant jaw or head pain. 01/05/21: pain not consistant and some days no pain. The lateral deviation chewing motion sometimes feel stuck more on L. STG Duration no longer constant, intermittent Environmental Monitoring Specialist Goal (LTG) Pt will be able to eat all types of food without increased pain. LTG Duration achieved Assessment Summary Assessment Pt has made excellent progress towards goals and is doing much better with jaw painw hcih is more intermittent now. She is less limited in what she eats and has less clicking . COnt PT to work on jaw mobility & stability to dec pain. Physical Therapy Plan Frequency and Duration Frequency of Treatment 1-2x Duration of Treatment 2months Plan of Care Start Date 02/02/21 Plan of Care End Date 04/04/21 Therapeutic Interventions Therapeutic Interventions Home Exercise Program,Joint Mobilizations,Manual Therapy, Neuromuscular Re-education, Patient/Caregiver Education, Self-Care/Home Management,Soft Tissue Mobilization,Taping, Therapeutic Activities, Therapeutic Exercises Modalities Cold Pack/Ice Massage,Electric Stimulation,Hot Packs, Traction- Mechanical, Ultrasound Next Visit Focus/Plan Next Note Type Treatment Note Next Visit Plan cont to work on form of exercises & posture & cervical stability, review plank & quadruped position Plan of Care Dates Plan of Care Start Date 02/02/21 Plan of Care End Date 04/04/21 Electronically Signed by: Mary Baldwin, PT 02/02/21 0908 Please Sign and Return: I have reviewed this Plan of Care and certify that the skilled therapy services above are required to meet the patient?s needs. Physician Signature Date Printed Name and Credentials Clinical Instructor Signature Printed Name and Credentials
--- NOTE | 2021-02-09 09:03 | PT.OTN ---
Current Diagnoses Dentofacial anomaly, unspecified (02/09/21) Cervicalgia (02/09/21) Muscle weakness (generalized) (02/09/21) Abnormal posture (02/09/21) Jaw pain (02/09/21) Physical Therapy Treatment Note PT-OP-A Visit Information Start: 12/08/20 07:31 Freq: Status: Active Protocol: Document 02/09/21 08:13 [facility] (Rec: 02/09/21 09:03 [facility] [id number]) Out-Patient Physical Therapy Visit Information Visit Information Visit Type Treatment Note Visit Start Time 08:17 Visit Stop Time 08:57 Total Visit Minutes 40 Visit Number 15 Number of MAIL ROOM CLERK Visits 0 PT-OP-B Current Condition Start: 12/08/20 07:31 Freq: Status: Active Protocol: Document 12/08/20 15:21 [facility] (Rec: 12/08/20 16:07 [facility] [id number]) Current Condition History of Current Condition Onset Date worse in last 9 months w/ history of 20 or so years Current Complaints L jaw >R History of Current Condition In 20s, Dr. Clement helped her re-align her jaw with splints and has had mult night guards. Before face would ache and hurt, but past 9 months feels like she is eating her mouth guard. She is more vicious in her clenching. Dr. Clement wanted her to be in braces but it was going to cost a lot and be 5 years. It is so sore sometimes it feels like she is has an ear ache L>R and pain goes into L forehead. She has burning on tongue which is being treated w/cymbalta. Pt reports chiro treatment and renay has stated she has been more mobile since starting cymbalta. [place] but face aches . Mm on face feel really tired . Dr Galeas wants her to go back to wearing her mouth guard. Pt stopped d/t feeling like she clenches more and is more sore. She wore it after the appt for a while then lost it and just found it last night. She feels more sore after wearing it and the day after feels more sore. Pt reports she wakes up in the middle of the night then am awake so has to read or take a melatonin to fall back asleep so can take an hour. Sleep difficulty has been worse in the past year. Tingly in mouth on L side of mouth & L sup & lat toungue. 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 Pt reports neck gets sore and tense and last doctor has found tightness in L UT region. Pt sometimes wakes up w/l arm into pinky tingly. Prior Treatments and Tests night splint Treatment Goals Patient/Caregiver Goals be able to dec pain & be able to eat all things (unable to eat jerky) Personal Factors Other Personal Factors That May Effect surgies: breast reduction, Therapy/Recovery bladder mesh lift, re-do vaginal canal, bladder likes to spasm-insurance no longer covers it, can't hold it when bladder spasms PT-OP-C Subjective Start: 12/08/20 07:31 Freq: Status: Active Protocol: Document 02/09/21 08:13 [facility] (Rec: 02/09/21 09:03 [facility] [id number]) OP-PT Subjective Patient Comments Patient Comments Pt reprots soreness after last session but otherwise doing well w/jaw pain PT-OP-F Manual Assessment Start: 12/08/20 07:31 Freq: Status: Active Protocol: Document 12/08/20 15:21 [facility] (Rec: 12/08/20 16:07 [facility] [id number]) Manual Assessments Joint Mobility Assessment Joint Mobility Assessment 1st rib L elevated PT-OP-J Posture/Palpation/Skin Start: 12/08/20 07:31 Freq: Status: Active Protocol: Document 02/02/21 08:13 [facility] (Rec: 02/02/21 09:07 [facility] [id number]) Posture Evaluation Gagan Postural Classification System Vertebral Compression Test 4 Elbow Flexion Test 3 PT-OP-K Range of Motion Start: 12/08/20 07:31 Freq: Status: Active Protocol: Document 02/02/21 08:13 [facility] (Rec: 02/02/21 09:07 [facility] [id number]) Cervical Spine Range of Motion Cervical Spine Active Degrees Testing Position Sitting Flexion 60 Extension 64 Rotation Left 80 Rotation Right 78 Lateral Flexion Left 45 Lateral Flexion Right 47 TMJ Range of Motion Jaw Openning Jaw Openning (mm) 48 PT-OP-Q Treatments Start: 12/08/20 07:31 Freq: Status: Active Protocol: Document 02/09/21 08:13 [facility] (Rec: 02/09/21 09:03 [facility] [id number]) Therapeutic Exercises Prone Exercises plank off hands/ elbows Prone Exercise Name 1. ahnds & feet 2. forearms & feet Side bilateral Reps/Minutes 30 sec x2 ea Comments max ceuing fro scap positon Standing Exercises ER Standing Exercise Name shoulder ER w/pronation Side bilateral Equipment Used L1 Reps/Minutes 2x8 Other Exercises quadruped Other Exercise Name serratus punch Side bilateral Reps/Minutes 15 Comments max cueing Manual Therapy Treatment Soft Tissue Mobilization cranium Mobilization Type Myofascial Release Intensity/Depth Superficial oral mm Body Location B masseter, R digastric & B hyoid mm, B temporalis Mobilization Type Sustained Pressure,Other Intensity/Depth Moderate Body Position Hooklying Comments externally PT-OP-R Modalities Start: 12/08/20 07:31 Freq: Status: Active Protocol: Document 12/16/20 17:42 [facility] (Rec: 12/16/20 17:59 [facility] [id number]) Hot Pack/Cold Pack Treatment Hot Pack Location cervical to jaw Patient Position Supine Treatment Duration (minutes) 15 PT-OP-T Assessment and Plan Start: 12/08/20 07:31 Freq: Status: Active Protocol: Document 02/09/21 08:13 [facility] (Rec: 02/09/21 09:03 [facility] [id number]) Physical Therapy Assessment Goals posture Short Term Goal (STG) Pt will have good desk set up and sleep position in order to dec pain. 01/05/21: pt will bring in pics of workstation, trying to improve monitor positioning. Has appt with sleep clinic . Will assess today sleep positioning- side sleeper. 02/02-pt notes she still needs to make some changes to desk. Has better sleep position and less pain now Pt will have good desk set up and sleep position in order to dec pain. 01/05/21: pt will bring in pics of workstation, trying to improve monitor positioning. Has appt with sleep clinic . Will assess today sleep positioning- side sleeper. STG Duration 03/04/21 Jail Goal (LTG) pt will show improvd posture with scoring of at least 4/5 on VCT & EFT and show good upright positioning w/o cuieng . 02/02-doing well LTG Duration 04/04/21 NDI Impairment 9/50 Executive Account Manager Goal (LTG) Pt will improve NDI score to no more than 2/50 to show improved functional ability. 02/02-improved to 7 LTG Duration 03/04/21 ROM Short Term Goal (STG) Pt will have full cervical ROM without inc pain/tightness. 01/05/21: no pain today. STG Duration achieved Jail Goal (LTG) pt will have full jaw openings w/o deviation and without pain to improve ability to eat . LTG Duration achieved jaw pain Short Term Goal (STG) Pt will report no constant jaw or head pain. 01/05/21: pain not consistant and some days no pain. The lateral deviation chewing motion sometimes feel stuck more on L. STG Duration no longer constant, intermittent Jail Goal (LTG) Pt will be able to eat all types of food without increased pain. LTG Duration achieved Assessment Summary Assessment Pt is doing wellw ith jaw opening/closing and plan is to follow up in a couple weeks to see how she does working on scap stability during exercis on her own. She still does require cuieng duirng planks and WB exercies Physical Therapy Plan Frequency and Duration Frequency of Treatment 1-2x Duration of Treatment 2months Plan of Care Start Date 02/02/21 Plan of Care End Date 04/04/21 Next Visit Focus/Plan Next Note Type Treatment Note Next Visit Plan cont to work on form of exercises & posture & cervical stability, review plank & quadruped position
--- NOTE | 2021-02-18 18:17 | PT.OTN ---
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) Cervicalgia (02/18/21) Muscle weakness (generalized) (02/18/21) Abnormal posture (02/18/21) Jaw pain (02/18/21) Physical Therapy Treatment Note PT-OP-A Visit Information Start: 12/08/20 07:31 Freq: Status: Active Protocol: Document 02/18/21 15:53 [facility] (Rec: 02/18/21 18:17 [facility] [id number]) Out-Patient Physical Therapy Visit Information Visit Information Visit Type Progress Note Visit Start Time 16:02 Visit Stop Time 16:45 Total Visit Minutes 43 Visit Number 16 Number of FORMING MACHINE TENDER Visits 0 PT-OP-B Current Condition Start: 12/08/20 07:31 Freq: Status: Active Protocol: Document 12/08/20 15:21 [facility] (Rec: 12/08/20 16:07 [facility] [id number]) Current Condition History of Current Condition Onset Date worse in last 9 months w/ history of 20 or so years Current Complaints L jaw >R History of Current Condition In 20s, Dr. Clement helped her re-align her jaw with splints and has had mult night guards. Before face would ache and hurt, but past 9 months feels like she is eating her mouth guard. She is more vicious in her clenching. Dr. Clement wanted her to be in braces but it was going to cost a lot and be 5 years. It is so sore sometimes it feels like she is has an ear ache L>R and pain goes into L forehead. She has burning on tongue which is being treated w/cymbalta. Pt reports chiro treatment and renay has stated she has been more mobile since starting cymbalta. [place] but face aches . Mm on face feel really tired . Dr Galeas wants her to go back to wearing her mouth guard. Pt stopped d/t feeling like she clenches more and is more sore. She wore it after the appt for a while then lost it and just found it last night. She feels more sore after wearing it and the day after feels more sore. Pt reports she wakes up in the middle of the night then am awake so has to read or take a melatonin to fall back asleep so can take an hour. Sleep difficulty has been worse in the past year. Tingly in mouth on L side of mouth & L sup & lat toungue. 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 Pt reports neck gets sore and tense and last doctor has found tightness in L UT region. Pt sometimes wakes up w/l arm into pinky tingly. Prior Treatments and Tests night splint Treatment Goals Patient/Caregiver Goals be able to dec pain & be able to eat all things (unable to eat jerky) Personal Factors Other Personal Factors That May Effect surgies: breast reduction, Therapy/Recovery bladder mesh lift, re-do vaginal canal, bladder likes to spasm-insurance no longer covers it, can't hold it when bladder spasms PT-OP-C Subjective Start: 12/08/20 07:31 Freq: Status: Active Protocol: Document 02/18/21 15:53 [facility] (Rec: 02/18/21 18:17 [facility] [id number]) OP-PT Subjective Patient Comments Patient Comments Pt notes Sat she got up and went to the gym and went to work and noticed eye was bugging her and she talked to a friend who is an eye MD who suggested that she may have dry eye from excessive screen time and to use drops which did. When she got up tuesday AM, she noticed facial droop and difficulty drinking so went to ER. She was diagnosed w/willard's palsy. She has started steroids and antiviral along w/eye cream and taping eye at night. Her Friend had machine PEMF for inflammation and she just did that and feels like [facility] is talking better. Saw her chiro earlier today who said neck was all messed up but seh has no nec pain. She sees primary tomorrow. Jaw was feeling the same as it had been last week until palsey started and now it is numb over there so she feels nothing and it feels great. Notes when seh opens wide, she feels a choking feeling on R side of throat. PT-OP-F Manual Assessment Start: 12/08/20 07:31 Freq: Status: Active Protocol: Document 12/08/20 15:21 [facility] (Rec: 12/08/20 16:07 [facility] [id number]) Manual Assessments Joint Mobility Assessment Joint Mobility Assessment 1st rib L elevated PT-OP-J Posture/Palpation/Skin Start: 12/08/20 07:31 Freq: Status: Active Protocol: Document 02/02/21 08:13 [facility] (Rec: 02/02/21 09:07 [facility] [id number]) Posture Evaluation [facility] Postural Classification System Vertebral Compression Test 4 Elbow Flexion Test 3 PT-OP-K Range of Motion Start: 12/08/20 07:31 Freq: Status: Active Protocol: Document 02/02/21 08:13 [facility] (Rec: 02/02/21 09:07 [facility] [id number]) Cervical Spine Range of Motion Cervical Spine Active Degrees Testing Position Sitting Flexion 60 Extension 64 Rotation Left 80 Rotation Right 78 Lateral Flexion Left 45 Lateral Flexion Right 47 TMJ Range of Motion Jaw Openning Jaw Openning (mm) 48 PT-OP-Q Treatments Start: 12/08/20 07:31 Freq: Status: Active Protocol: Document 02/18/21 15:53 [facility] (Rec: 02/18/21 18:17 [facility] [id number]) Therapeutic Exercises Standing Exercises mirror Standing Exercise Name attached bells palsy exercise handout in mirror w/AAROm for motions Manual Therapy Treatment Soft Tissue Mobilization cranium Mobilization Type Myofascial Release Intensity/Depth Superficial SCM, suboccipitals, UT, lev scap, temporalis Body Location SCM & Scalenes, SOR Mobilization Type Cross-Friction,Myofascial Release,Rolling,Sustained Pressure Intensity/Depth Moderate Body Position Hooklying Self-Care/Home Management Treatment Education Patient Education Home Exercise Program Other Education edu to avoid large opening w/ feeling of choking and to wokr on jaw motion in comfortable range, edu on using emotion and mirror for working on facial mm. Edu re: prognosis of bells palsy PT-OP-R Modalities Start: 12/08/20 07:31 Freq: Status: Active Protocol: Document 12/16/20 17:42 [facility] (Rec: 12/16/20 17:59 [facility] [id number]) Hot Pack/Cold Pack Treatment Hot Pack Location cervical to jaw Patient Position Supine Treatment Duration (minutes) 15 PT-OP-T Assessment and Plan Start: 12/08/20 07:31 Freq: Status: Active Protocol: Document 02/18/21 15:53 [facility] (Rec: 02/18/21 18:17 [facility] [id number]) Physical Therapy Assessment Goals facial mm Shelter Goal (LTG) Pt will have improved control of facial muscles with imrpoveda bility to smile, swallow, use straw and drink. posture Short Term Goal (STG) Pt will have good desk set up and sleep position in order to dec pain. 01/05/21: pt will bring in pics of workstation, trying to improve monitor positioning. Has appt with sleep clinic . Will assess today sleep positioning- side sleeper. 02/02-pt notes she still needs to make some changes to desk. Has better sleep position and less pain now Pt will have good desk set up and sleep position in order to dec pain. 01/05/21: pt will bring in pics of workstation, trying to improve monitor positioning. Has appt with sleep clinic . Will assess today sleep positioning- side sleeper. STG Duration 03/21/21 Gate Mortiser Operator Goal (LTG) pt will show improvd posture with scoring of at least 4/5 on VCT & EFT and show good upright positioning w/o cuieng . 02/02-doing well LTG Duration 04/20/21 NDI Impairment 9/50 Gate Mortiser Operator Goal (LTG) Pt will improve NDI score to no more than 2/50 to show improved functional ability. 02/02-improved to 7 LTG Duration 04/20/21 ROM Short Term Goal (STG) Pt will have full cervical ROM without inc pain/tightness. 01/05/21: no pain today. STG Duration achieved Gate Mortiser Operator Goal (LTG) pt will have full jaw openings w/o deviation and without pain to improve ability to eat . achieved Reset goal d/t bells palsey starting LTG Duration 04/20/21 jaw pain Short Term Goal (STG) Pt will report no constant jaw or head pain. 01/05/21: pain not consistant and some days no pain. The lateral deviation chewing motion sometimes feel stuck more on L. STG Duration no longer constant, intermittent Shelter Goal (LTG) Pt will be able to eat all types of food without increased pain. LTG Duration achieved Assessment Summary Assessment Pt had been doing very well with therapy with imrpoved jaw motion and less pain and dec popping. She then got Willard's Palsy this past weekend which has changed her facial function and jaw motion d/t mm paralysis. She is going through testing with MDs and will be seeing DO for manipulation and is considering acupuncture along w/cont to see chiro for neck. She would beneift from cont PT to work on jaw and facial mm. Physical Therapy Plan Frequency and Duration Frequency of Treatment 1x/Week Duration of Treatment 1 month Plan of Care Start Date 02/18/21 Plan of Care End Date 03/21/21 Therapeutic Interventions Therapeutic Interventions Home Exercise Program,Joint Mobilizations,Manual Therapy, Neuromuscular Re-education, Patient/Caregiver Education, Self-Care/Home Management,Soft Tissue Mobilization,Taping, Therapeutic Activities, Therapeutic Exercises Modalities Cold Pack/Ice Massage,Electric Stimulation,Hot Packs, Traction- Mechanical, Ultrasound Next Visit Focus/Plan Next Note Type Treatment Note Next Visit Plan cont to work on form of exercises & posture & cervical stability, review plank & quadruped position; cont to work on cranial and cervical fascial mobility
--- NOTE | 2021-02-18 18:17 | PT.OPPOC ---
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) Cervicalgia (02/18/21) Muscle weakness (generalized) (02/18/21) Abnormal posture (02/18/21) Jaw pain (02/18/21) Visit Care Team Role Provider Type Jak Nicholson MD Primary Care Provider Physician Specialty: Family Practice Address: [address] [place] [address], [id number] Email: [email or web address] Amador Galeas DDS Attending Provider Non-Staff Referring Provider Specialty: Dentistry Address: [address] [place] [address], [address], [id number] Email: Plan Of Care PT-OP-T Assessment and Plan Start: 12/08/20 07:31 Freq: Status: Active Protocol: Document 02/18/21 15:53 [facility] (Rec: 02/18/21 18:17 [facility] [id number]) Physical Therapy Assessment Goals facial mm Vessel Scrapper Helper Goal (LTG) Pt will have improved control of facial muscles with imrpoveda bility to smile, swallow, use straw and drink. posture Short Term Goal (STG) Pt will have good desk set up and sleep position in order to dec pain. 01/05/21: pt will bring in pics of workstation, trying to improve monitor positioning. Has appt with sleep clinic . Will assess today sleep positioning- side sleeper. 02/02-pt notes she still needs to make some changes to desk. Has better sleep position and less pain now Pt will have good desk set up and sleep position in order to dec pain. 01/05/21: pt will bring in pics of workstation, trying to improve monitor positioning. Has appt with sleep clinic . Will assess today sleep positioning- side sleeper. STG Duration 03/21/21 Vessel Scrapper Helper Goal (LTG) pt will show improvd posture with scoring of at least 4/5 on VCT & EFT and show good upright positioning w/o cuieng . 02/02-doing well LTG Duration 04/20/21 NDI Impairment 9/50 Vessel Scrapper Helper Goal (LTG) Pt will improve NDI score to no more than 2/50 to show improved functional ability. 02/02-improved to 7 LTG Duration 04/20/21 ROM Short Term Goal (STG) Pt will have full cervical ROM without inc pain/tightness. 01/05/21: no pain today. STG Duration achieved Vessel Scrapper Helper Goal (LTG) pt will have full jaw openings w/o deviation and without pain to improve ability to eat . achieved Reset goal d/t bells palsey starting LTG Duration 04/20/21 jaw pain Short Term Goal (STG) Pt will report no constant jaw or head pain. 01/05/21: pain not consistant and some days no pain. The lateral deviation chewing motion sometimes feel stuck more on L. STG Duration no longer constant, intermittent [facility] Goal (LTG) Pt will be able to eat all types of food without increased pain. LTG Duration achieved Assessment Summary Assessment Pt had been doing very well with therapy with imrpoved jaw motion and less pain and dec popping. She then got Willard's Palsy this past weekend which has changed her facial function and jaw motion d/t mm paralysis. She is going through testing with MDs and will be seeing DO for manipulation and is considering acupuncture along w/cont to see chiro for neck. She would beneift from cont PT to work on jaw and facial mm. Physical Therapy Plan Frequency and Duration Frequency of Treatment 1x/Week Duration of Treatment 1 month Plan of Care Start Date 02/18/21 Plan of Care End Date 03/21/21 Therapeutic Interventions Therapeutic Interventions Home Exercise Program,Joint Mobilizations,Manual Therapy, Neuromuscular Re-education, Patient/Caregiver Education, Self-Care/Home Management,Soft Tissue Mobilization,Taping, Therapeutic Activities, Therapeutic Exercises Modalities Cold Pack/Ice Massage,Electric Stimulation,Hot Packs, Traction- Mechanical, Ultrasound Next Visit Focus/Plan Next Note Type Treatment Note Next Visit Plan cont to work on form of exercises & posture & cervical stability, review plank & quadruped position; cont to work on cranial and cervical fascial mobility Plan of Care Dates Plan of Care Start Date 02/18/21 Plan of Care End Date 03/21/21 Electronically Signed by: Mary Baldwin, PT 05/09/29 1817 Please Sign and Return: I have reviewed this Plan of Care and certify that the skilled therapy services above are required to meet the patient?s needs. Physician Signature Date Printed Name and Credentials Clinical Instructor Signature Printed Name and Credentials
--- NOTE | 2021-03-02 14:03 | PT.OTN ---
Current Diagnoses Dentofacial anomaly, unspecified (03/02/21) Cervicalgia (03/02/21) Muscle weakness (generalized) (03/02/21) Abnormal posture (03/02/21) Jaw pain (03/02/21) Physical Therapy Treatment Note PT-OP-A Visit Information Start: 12/08/20 07:31 Freq: Status: Active Protocol: Document 03/02/21 13:06 [facility] (Rec: 03/02/21 13:24 [facility] [id number]) Out-Patient Physical Therapy Visit Information Visit Information Visit Type Discharge Summary Visit Start Time 09:46 Visit Stop Time 10:28 Total Visit Minutes 42 Visit Number 17 Number of FLIGHT CONTROL MANAGER Visits 0 PT-OP-B Current Condition Start: 12/08/20 07:31 Freq: Status: Active Protocol: Document 12/08/20 15:21 [facility] (Rec: 12/08/20 16:07 [facility] [id number]) Current Condition History of Current Condition Onset Date worse in last 9 months w/ history of 20 or so years Current Complaints L jaw >R History of Current Condition In 20s, Dr. Clement helped her re-align her jaw with splints and has had mult night guards. Before face would ache and hurt, but past 9 months feels like she is eating her mouth guard. She is more vicious in her clenching. Dr. Clement wanted her to be in braces but it was going to cost a lot and be 5 years. It is so sore sometimes it feels like she is has an ear ache L>R and pain goes into L forehead. She has burning on tongue which is being treated w/cymbalta. Pt reports chiro treatment and reddio has stated she has been more mobile since starting cymbalta. [place] but face aches . Mm on face feel really tired . Dr Galeas wants her to go back to wearing her mouth guard. Pt stopped d/t feeling like she clenches more and is more sore. She wore it after the appt for a while then lost it and just found it last night. She feels more sore after wearing it and the day after feels more sore. Pt reports she wakes up in the middle of the night then am awake so has to read or take a melatonin to fall back asleep so can take an hour. Sleep difficulty has been worse in the past year. Tingly in mouth on L side of mouth & L sup & lat toungue. 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 Pt reports neck gets sore and tense and last doctor has found tightness in L [place] region. Pt sometimes wakes up w/l arm into pinky tingly. Prior Treatments and Tests night splint Treatment Goals Patient/Caregiver Goals be able to dec pain & be able to eat all things (unable to eat jerky) Personal Factors Other Personal Factors That May Effect surgies: breast reduction, Therapy/Recovery bladder mesh lift, re-do vaginal canal, bladder likes to spasm-insurance no longer covers it, can't hold it when bladder spasms PT-OP-C Subjective Start: 12/08/20 07:31 Freq: Status: Active Protocol: Document 03/02/21 13:06 [facility] (Rec: 03/02/21 13:24 [facility] [id number]) OP-PT Subjective Patient Comments Patient Comments Pt reprots she does exercises some but did read somewhere not to do too many early on PT-OP-F Manual Assessment Start: 12/08/20 07:31 Freq: Status: Active Protocol: Document 12/08/20 15:21 [facility] (Rec: 12/08/20 16:07 [facility] [id number]) Manual Assessments Joint Mobility Assessment Joint Mobility Assessment 1st rib L elevated PT-OP-J Posture/Palpation/Skin Start: 12/08/20 07:31 Freq: Status: Active Protocol: Document 02/02/21 08:13 [facility] (Rec: 02/02/21 09:07 [facility] [id number]) Posture Evaluation [facility] Postural Classification System Vertebral Compression Test 4 Elbow Flexion Test 3 PT-OP-K Range of Motion Start: 12/08/20 07:31 Freq: Status: Active Protocol: Document 02/02/21 08:13 [facility] (Rec: 02/02/21 09:07 [facility] [id number]) Cervical Spine Range of Motion Cervical Spine Active Degrees Testing Position Sitting Flexion 60 Extension 64 Rotation Left 80 Rotation Right 78 Lateral Flexion Left 45 Lateral Flexion Right 47 TMJ Range of Motion Jaw Openning Jaw Openning (mm) 48 PT-OP-Q Treatments Start: 12/08/20 07:31 Freq: Status: Active Protocol: Document 03/02/21 13:06 [facility] (Rec: 03/02/21 13:24 [facility] [id number]) Manual Therapy Treatment Soft Tissue Mobilization cranium Mobilization Type Myofascial Release Intensity/Depth Superficial oral mm Body Location B masseter, R digastric & B hyoid mm, B temporalis Mobilization Type Sustained Pressure,Other Intensity/Depth Moderate Body Position Hooklying Comments externally SCM, suboccipitals, UT, lev scap, temporalis Body Location SCM & Scalenes, SOR & cspine paraspinals Mobilization Type Cross-Friction,Myofascial Release,Rolling,Sustained Pressure Intensity/Depth Moderate Body Position Hooklying Joint Mobilizations C1 Direction transverse L and UPA R Grade II Self-Care/Home Management Treatment Education Other Education discussed DC. edu to work on rocobado exercises & cervical stretches and positioning exercises. Edu that she is indep w/HEP & that she is seeing mult professionals w/ focus on bells Palsy so at this time dc from PT for jaw and possibly resume if needed down the line PT-OP-R Modalities Start: 12/08/20 07:31 Freq: Status: Active Protocol: Document 12/16/20 17:42 [facility] (Rec: 12/16/20 17:59 [facility] [id number]) Hot Pack/Cold Pack Treatment Hot Pack Location cervical to jaw Patient Position Supine Treatment Duration (minutes) 15 PT-OP-T Assessment and Plan Start: 12/08/20 07:31 Freq: Status: Active Protocol: Document 03/02/21 13:06 [facility] (Rec: 03/02/21 13:24 [facility] [id number]) Physical Therapy Assessment Goals facial mm Intermediate Goal (LTG) Pt will have improved control of facial muscles with imrpoveda bility to smile, swallow, use straw and drink. posture Short Term Goal (STG) Pt will have good desk set up and sleep position in order to dec pain. 01/05/21: pt will bring in pics of workstation, trying to improve monitor positioning. Has appt with sleep clinic . Will assess today sleep positioning- side sleeper. 02/02-pt notes she still needs to make some changes to desk. Has better sleep position and less pain now Pt will have good desk set up and sleep position in order to dec pain. 01/05/21: pt will bring in pics of workstation, trying to improve monitor positioning. Has appt with sleep clinic . Will assess today sleep positioning- side sleeper. STG Duration 03/21/[address] Goal (LTG) pt will show improvd posture with scoring of at least 4/5 on VCT & EFT and show good upright positioning w/o cuieng . 02/02-doing well LTG Duration 04/20/21 NDI Impairment 9/50 Intermediate Goal (LTG) Pt will improve NDI score to no more than 2/50 to show improved functional ability. 02/02-improved to 7 LTG Duration 04/20/21 ROM Short Term Goal (STG) Pt will have full cervical ROM without inc pain/tightness. 01/05/21: no pain today. STG Duration achieved Appellate Court Judge Goal (LTG) pt will have full jaw openings w/o deviation and without pain to improve ability to eat . achieved Reset goal d/t bells palsey starting LTG Duration 04/20/21 jaw pain Short Term Goal (STG) Pt will report no constant jaw or head pain. 01/05/21: pain not consistant and some days no pain. The lateral deviation chewing motion sometimes feel stuck more on L. STG Duration no longer constant, intermittent Appellate Court Judge Goal (LTG) Pt will be able to eat all types of food without increased pain. LTG Duration achieved Assessment Summary Assessment Pt had relief of pain and imrpoved R rotationo f neck after manual therapy w/less feeling of tightness. SHe is seeing mult specialists at this time for Willard's Palsy which has caused a recent inc in jaw pain. At this time, pt is encouraged to work with MT, chiropractor, sleep specialist, and DO for combo care and if as willard's palsy improves, she requires returnt o PT to discuss this w/MD. Prior to Willard's Palsy, pt was about ready for DC. At this time, pt is DC to HEP and other practioner care. Physical Therapy Plan Discharge Physical Therapy Discharge Comments Pt was doing well until diagnosis of Willard's Palsy. Indep w/HEP. Pt to cont to see chiro, MT, and DO and consisdering acupuncture
== END 2021-03-02 14:40 | disposition home or self-care (01) ==
LOC: PHYS 09:45
PROVIDERS: PCP Family Medicine; Referring Provider Dentist; Visit Provider Dentist
DX: M26.9 Dentofacial anomaly, unspecified (principal); M54.2 Cervicalgia; R68.84 Jaw pain; M62.81 Muscle weakness (generalized); R29.3 Abnormal posture
CPT/HCPCS: 97010; 97110; 97140; 97162; 97535

== ENCOUNTER → 2021-09-21 11:39 | Outpatient (CLI) | payer OTHER, SELFPAY ==
[2021-09-21 13:18] LABS: Appearance Urine UA CLEAR; Bilirubin Urine UA NEGATIVE (NEGATIVE); Color Urine UA YELLOW; Glucose Urine UA TRACE g/dL (Negative); Ketones Urine UA NEGATIVE (NEGATIVE); Leukocyte Esterase Urine UA 3+ (NEGATIVE); Nitrite Urine UA POSITIVE (Negative); Occult Blood Urine UA TRACE-INTACT (Negative); Protein Urine UA NEGATIVE (Negative); Urobilinogen Urine UA 0.2 E.U./dL (0.2)
[2021-09-21 13:42] LABS: pH Urine UA 7.5 (4.5-8.0)
[2021-09-21 13:43] LABS: Bacteria Urine Few (2-10); Culture Indicated Urine Specimen Cultured; RBC Urine 0-1/HPF (0-5/HPF); Squamous Epithelial Cell Urine 1-5 /HPF (0-5/HPF); WBC Urine 10-30/HPF (0-5/HPF)
== END ==
PROVIDERS: PCP Family Medicine; Referring Provider Family Medicine; Visit Provider Family Medicine
DX: R30.0 Dysuria (principal)
CPT/HCPCS: 81001; 87077; 87086; 87186

== ENCOUNTER → 2021-10-07 12:04 | Outpatient (CLI) | payer OTHER, SELFPAY ==
[2021-10-07 13:59] LABS: COVID19 -Nasal RAPID Negative (Negative)
== END ==
PROVIDERS: PCP Family Medicine; Referring Provider Nurse Practitioner Family; Visit Provider Nurse Practitioner Family
DX: Z20.822 Contact with and (suspected) exposure to COVID-19 (principal)
CPT/HCPCS: 87635

== ENCOUNTER → 2021-11-30 11:26 | Outpatient (CLI) | payer OTHER, SELFPAY ==
[2021-11-30 14:00] LABS: Appearance Urine UA CLEAR; Bilirubin Urine UA NEGATIVE (NEGATIVE); Color Urine UA YELLOW; Glucose Urine UA NEGATIVE (Negative); Ketones Urine UA NEGATIVE (NEGATIVE); Leukocyte Esterase Urine UA 2+ (NEGATIVE); Nitrite Urine UA NEGATIVE (Negative); Occult Blood Urine UA NEGATIVE (Negative); Protein Urine UA NEGATIVE (Negative); Specific Gravity Urine UA <=1.005 (1.000-1.035); Urobilinogen Urine UA 0.2 E.U./dL (0.2)
[2021-11-30 14:25] LABS: pH Urine UA 6.5 (4.5-8.0)
[2021-11-30 14:27] LABS: Bacteria Urine Few (2-10); Culture Indicated Urine Specimen Cultured; RBC Urine 0-1/HPF (0-5/HPF); Squamous Epithelial Cell Urine 0-1 /HPF (0-5/HPF); WBC Urine 10-30/HPF (0-5/HPF)
== END ==
PROVIDERS: PCP Family Medicine; Referring Provider Family Medicine; Visit Provider Family Medicine
DX: R30.0 Dysuria (principal)
CPT/HCPCS: 81001; 87086

== ENCOUNTER → 2022-08-02 11:57 | Outpatient (CLI) | payer OTHER, SELFPAY ==
[2022-08-02 14:06] LABS: COVID19 -Nasal RAPID Negative (Negative)
== END ==
PROVIDERS: PCP Family Medicine; Visit Provider Surgery
DX: Z20.822 Contact with and (suspected) exposure to COVID-19 (principal); Z01.812 Encounter for preprocedural laboratory examination
CPT/HCPCS: 87635; C9803

== ENCOUNTER 2022-08-03 08:22 | Day surgery (SDC) | payer OTHER, SELFPAY ==
--- NOTE | 2022-08-03 | PATH_ITS ---
[facility] Accession Number: [id number] No. of containers..01 Tissue . 01 Material submitted: . colon - TRANSVERSE COLON POLYP . 01 Diagnosis: Transverse Colon, Polyp, Biopsy: Sessile serrated adenoma. MRV 08/10/2022 1217 Local . 01 Electronically signed: . Shelby Grullon MD, Pathologist NPI- [id number] . 01 Gross description: . TRANSVERSE COLON POLYP: Received in formalin are 2 fragment(s) of tidwell, soft tissue measuring 0.2 x 0.2 x 0.2 cm to 0.3 x 0.2 x 0.2 cm submitted entirely in 1 cassette(s) /VALARIE 08/09/2022 2316 Local . 01 Pathologist provided ICD-10: D12.3 . 01 CPT . 583102 Specimen Comment: A courtesy copy of this report has been sent to [phone] Performed at: 01 [facility] [address] [place] [address] [address], [place], [place] [id number] MD Nilton Manriquez MD Phone: [phone]
[2022-08-03] MEDS: SODIUM CHLORIDE 0.9% 1,000 ML 150 ML IV (08:31)
[2022-08-03 08:57] VITALS: BP 106/72; PULSE 81; RESP 16; TEMP 37; O2SAT 100
--- NOTE | 2022-08-03 09:03 | P.HP_ITS ---
History of Present Illness History of Present Illness Date Patient Seen: 08/03/22 Chief complaint: SCREENING COLONOSCOPY W/POSS BX Narrative: The patient presents for colorectal screening. They have never had any previous examination for such. No personal or family history of colon cancer. On further history denies any recent gastrointestinal symptoms. No nausea, vomiting, abdominal pain, loss of appetite, unexplained weight loss, change in bowel habits, diarrhea, constipation, melena, hematochezia, or bright red blood per rectum. Patient History Medical History Cervical somatic dysfunction Cranial somatic dysfunction Overactive bladder Pelvic somatic dysfunction Remove/insert IUD Sacral region somatic dysfunction Segmental and somatic dysfunction of abdomen and other regions Stiff neck Surgical History History of bladder suspension procedure Status post breast reduction Family & Social History Family History Father Cancer of neck Social History: household members spouse Tobacco & Substance use: Smoking Status Former smoker alcohol intake current alcohol intake frequency 0-2 drinks per day Substance Use Type does not use Meds Home Medications and Allergies Home Medications Medication Instructions Recorded Confirmed Type ascorbic acid (vitamin C) 500 mg 500 mg PO DAILY 08/03/22 08/03/22 History tablet (Vitamin C) cholecalciferol (vitamin D3) 50 50 mcg PO DAILY 08/03/22 08/03/22 History mcg (2,000 unit) tablet (Vitamin D3) zinc 10 mg tablet 10 mg PO DAILY 08/03/22 08/03/22 History Allergies Allergy/AdvReac Type Severity Reaction Status Date / Time No Known Drug Allergies Allergy Verified 08/03/22 08:38 Exam Vital Signs (past 8 hours): - 08/03/22 08:57 Temperature 98.6 F Pulse Rate 81 Respiratory Rate 16 Blood Pressure 106/72 Pulse Oximetry 100 Oxygen Delivery Method Room Air Oxygen Delivery Method Room Air Narrative Exam Narrative: General adult woman alert oriented no acute distress Chest nonlabored respiration Extremities warm well perfused Assessment & Plan Assessment & Plan narrative: The patient requires colorectal screening and colonoscopy is recommended. Technical details were discussed. Risks, benefits, alternatives explained. Risks including but not limited to myocardial infarction, aspiration, bleeding, pain, missed lesion, incomplete examination, need for further radiographic studies, colonic perforation, and need for major abdominal surgery were discusse d. All questions were answered to their satisfaction, and they are in agreement with this plan. Time Spent With Patient Critical Care time: I spent a total of [] minutes of critical care time on this patient's care today; this time is exclusive of procedural time.
--- NOTE | 2022-08-03 09:06 | P.OP.COLON_ITS ---
Operative Date/Time/Diagnoses Date of procedure: 08/03/22 Time of procedure: 09:06 Pre-op diagnosis: Screening Post-op diagnosis: same Procedure & Clinicians Study performed: Colonoscopy Same procedure as scheduled: Yes Indications: Screening Surgeon: Cain Ott Procedure Notes Procedure in detail: Medications: Conscious sedation using 8mg IV midazolam and 150mcg IV of fentanyl The history and physical was performed/updated and the patient is ASA class is 1. The procedure was discussed in detail with the patient. Potential risks complications including infection, bleeding, missed diagnosis, perforation, need for surgery, and were explained. Their questions were answered and informed consent was obtained. Patient was brought to the procedure room and placed standard monitoring equipment. The patient's vital signs were monitored continuously throughout the entire procedure. Prior to starting time-out was performed. The patient was placed in the left lateral recumbent position. Procedural sedation was adminis tered. Examination began with a thorough inspection of the perianal area there was no evidence of fissures, fistulae, external hemorrhoids or cutaneous malignancy. The colonoscopy scope was then placed into the anal canal and was advanced to the cecum, which was identified by the ileocecal valve, the appendiceal orifice and the confluence of the taenia. The scope was then slowly withdrawn examining colon thoroughly in all directions, irrigating it of any residual stool. FINDINGS 1. Transverse colon-5 mm polyp removed with biopsy forceps The patient tolerated the procedure well. They will be discharged once criteria are met. The prep was of good/excellent quality. The withdrawl time was 6 minutes. The sedation time was 17 minutes. Specimen(s): other (Transverse colonic polyp) Complications: none Impression: Colonic polyp Post-procedure Recommendations: Will call with biopsy results Disposition: same day surgery
[2022-08-03] MEDS: MIDAZOLAM 5 MG/5 ML VIAL 8 MG IV (09:21)
[2022-08-03] MEDS: fentaNYL 100 MCG/2 ML INJ 150 MCG IV (09:21)
[2022-08-03 09:33] VITALS: BP 105/68; PULSE 75; RESP 8; TEMP 36.6; O2SAT 95
[2022-08-03 09:38] VITALS: BP 95/66; PULSE 71; RESP 10; O2SAT 95
[2022-08-03 09:43] VITALS: BP 95/68; PULSE 82; RESP 16; TEMP 36.9; O2SAT 97
[2022-08-03 09:48] VITALS: BP 110/71; PULSE 97; RESP 13; O2SAT 97
[2022-08-03 09:53] VITALS: BP 105/70; PULSE 71; RESP 17; TEMP 36.8; O2SAT 97
== END 2022-08-03 10:10 | disposition home or self-care (01) ==
PROVIDERS: PCP Family Medicine; Referring Provider Surgery; Visit Provider Surgery
PROC: 0DJD8ZZ Inspection of Lower Intestinal Tract, Via Natural or Artificial Opening Endoscopic (ICD-10-PCS; CPT 45378; principal; 2022-08-03 09:15)
DX: Z12.11 Encounter for screening for malignant neoplasm of colon (principal); D12.3 Benign neoplasm of transverse colon
CPT/HCPCS: 45380; 99152; J2250; J3010

== ENCOUNTER → 2022-09-21 11:27 | Outpatient (CLI) | payer OTHER, SELFPAY ==
[2022-09-21 12:00] LABS: Appearance Urine UA CLOUDY; Bilirubin Urine UA NEGATIVE (NEGATIVE); Color Urine UA YELLOW; Glucose Urine UA TRACE g/dL (Negative); Ketones Urine UA NEGATIVE (NEGATIVE); Leukocyte Esterase Urine UA 3+ (NEGATIVE); Nitrite Urine UA POSITIVE (Negative); Occult Blood Urine UA 3+ (Negative); Protein Urine UA 3+ (Negative); Urobilinogen Urine UA 0.2 E.U./dL (0.2); pH Urine UA 7.5 (4.5-8.0)
[2022-09-21 12:03] LABS: Bacteria Urine Many (>30); Culture Indicated Urine Specimen Cultured; RBC Urine 10-30/HPF (0-5/HPF); Squamous Epithelial Cell Urine 0-1 /HPF (0-5/HPF); WBC Urine 30-100/HPF (0-5/HPF)
== END ==
PROVIDERS: PCP Family Medicine; Referring Provider Family Medicine; Visit Provider Family Medicine
DX: R30.0 Dysuria (principal)
CPT/HCPCS: 81003; 81015; 87077; 87086; 87186

== ENCOUNTER → 2024-05-29 11:43 | Outpatient (CLI) | payer OTHER, SELFPAY ==
[2024-05-29 13:03] LABS: Add Manual Diff / Slide Review NO; Basophils Absolute Auto 0 /uL (0-100); Basophils Percent Auto 0.5 % (0-2); Eosinophils Absolute Auto 100 /uL (0-450); Eosinophils Percent Auto 0.8 % (2-4); Hematocrit 39.7 % (36-46); Hemoglobin 13.2 g/dL (12.0-16.0); Lymphocytes Absolute Auto 1500 /uL (1100-4500); Lymphocytes Percent Auto 21.9 % (25-40); Mean Corpuscular HGB Conc 33.4 % (30-36); Mean Corpuscular Hemoglobin 30.6 PG (26-34); Mean Corpuscular Volume 91.6 fL (80-100); Monocytes Absolute Auto 500 /uL (0-900); Neutrophils Absolute Auto 4600 /uL (1500-7000); Neutrophils Percent Auto 69.8 % (50-75); Platelet Count 291 X10^3/uL (150-400); Red Blood Cell Count 4.33 X10^6/uL (4.0-5.2); Red Cell Distribution Width 14.4 % (11.6-14.8); White Blood Cell Count 6.7 X10^3/uL (4.5-11.0)
[2024-05-29 13:16] LABS: Cholesterol 246 mg/dL (140-199); HDL Cholesterol 104 mg/dL (40-60); LDL Cholesterol Calculated 126 mg/dL (<100); Triglycerides 79 mg/dL (35-150)
[2024-05-29 13:51] LABS: TSH w/ Reflex to FT4 0.75 uIU/mL (0.47-4.68)
== END ==
PROVIDERS: PCP Family Medicine; Referring Provider Family Medicine; Visit Provider Family Medicine
DX: Z00.00 Encounter for general adult medical examination without abnormal findings (principal); M26.629 Arthralgia of temporomandibular joint, unspecified side; M99.00 Segmental and somatic dysfunction of head region; Z13.220 Encounter for screening for lipoid disorders; Z13.29 Encounter for screening for other suspected endocrine disorder
CPT/HCPCS: 36415; 80061; 84443; 85025

== ENCOUNTER → 2024-07-26 10:54 | Outpatient (CLI) | payer OTHER, SELFPAY ==
--- NOTE | 2024-07-26 10:55 | DI.CT.S_ITS ---
PROCEDURE: CT LUNG LOW DOSE SCREENING INDICATIONS: smoking hx greater then 2o pack year TECHNIQUE: Noncontrast 2.0-2.5 mm thick sections acquired from the pulmonary apices to the posterior costophrenic angles. 7 mm thick axial MIP, and 5 mm coronal and sagittal reformats were then acquired. For radiation dose reduction, the following was used: automated exposure control, adjustment of mA and/or kV according to patient size. COMPARISON: None. FINDINGS: Image quality: Diagnostic. Lower Neck: No enlarged lymph nodes. Thyroid: No thyroid nodules which require sonographic follow up, per consensus guidelines. Axillae: No enlarged lymph nodes. Chest Wall: Unremarkable. Bones: No aggressive appearing bony lesions. Lungs and Pleura: No pneumothorax or pleural effusions. No consolidation or suspicious nodules. Heart: Heart size is normal. No pericardial effusion. Thoracic Vessels: The aorta and pulmonary arteries demonstrate normal size. Mediastinum and Aster: No enlarged lymph nodes. Esophagus: No wall thickening. No hiatal hernia. Upper Abdomen: Visualized upper abdomen solid organs and bowel loops appear normal. IMPRESSION: No suspicious pulmonary nodules. LUNG-RADS 1; continued annual screening, if eligible. Clinically Significant Non-pulmonary Findings: None Dictated by: Tai Bernard M.D. on 07/26/2024 at 14:53 Approved by: Tai Bernard M.D. on 07/26/2024 at 14:54
== END ==
PROVIDERS: PCP Family Medicine; Referring Provider Family Medicine; Visit Provider Family Medicine
DX: Z12.2 Encounter for screening for malignant neoplasm of respiratory organs (principal); Z87.891 Personal history of nicotine dependence
CPT/HCPCS: 71271